=== PATIENT | male | born 1975 | race Caucasian/White ===

== ENCOUNTER 2020-08-22 21:04 | Inpatient (IN) | payer OTHER, SELFPAY ==
[2020-08-22] MEDS ORDERED: Midazolam HCl 2 mg/2 ml Vial ONE (21:32)
[2020-08-22] MEDS ORDERED: Dextrose 50% Abboject 50 ML SYRINGE SLOW IVP PRN (21:52)
[2020-08-22] MEDS ORDERED: Dextrose 5% in Water 1,000 ML IV PRN (21:52)
--- NOTE | 2020-08-22 22:20 | RAD ---
Chest one view HISTORY: Preop. FINDINGS: Cardiac silhouette is magnified by projection. Pulmonary vasculature are unremarkable. Mediastinum is midline. No lobar consolidation or evidence of pneumothorax. IMPRESSION : No abnormalities are demonstrated.
[2020-08-22] MEDS ORDERED: traMADol HCl 50 MG TAB PO PRN (22:44)
[2020-08-22] MEDS ORDERED: Ondansetron PF 4 MG/2 ML Vial IVP PRN (22:45)
[2020-08-22] MEDS ORDERED: Lactated Ringer's 1,000 ML IV SCH (23:59)
[2020-08-23] MEDS: Acetaminophen 500 MG TAB PO SCH ×4 (00:07→18:34)
[2020-08-23] MEDS: Ibuprofen 200 MG TAB PO SCH ×4 (00:08→18:00)
[2020-08-23] MEDS: traMADol HCl 50 MG TAB PO SCH ×2 (00:08→05:12)
[2020-08-23] MEDS: Morphine 4 MG/ML VIAL SLOW IVP PRN ×2 (00:10→05:12)
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
[2020-08-23 06:49] LABS: #Basophils 0.1 thou/uL (0.0-0.2); #Eosinphils 0.1 thou/uL (0.0-0.7); #Monocytes 0.8 thou/uL (0.11-0.59); %Basophils 0.8 % (0.0-1.0); %Eosinophils 1.3 % (0.0-10.0); %Lymphocytes 28.8 % (21.0-51.0); %Monocytes 10.9 % (0.0-10.0); %Neutrophils 58.2 % (42.0-75.0); Hemoglobin 13.3 g/dL (14.0-18.0); Mean Corpuscular Hemoglobin 31.3 pg (27.0-31.0); Mean Corpuscular Volume 92.2 fL (78.0-98.0); Mean Platelet Volume 7.5 fL (7.4-10.4); Platelet Count 162 thou/uL (130-400); Red Blood Cell (RBC) Count 4.24 mill/uL (4.70-6.10); White Blood Cell (WBC) Count 6.9 thou/uL (4.8-10.8)
[2020-08-23 07:08] LABS: Anion Gap 13 mmol/L (10-20); BUN (Urea Nitrogen) 10 mg/dL (8.9-20.6); Calc. Creatinine Clearance 100 mL/min (70-130); Calcium 8.5 mg/dL (7.8-10.44); Carbon Dioxide 25 mmol/L (22-29); Chloride 102 mmol/L (98-107); Glucose 124 mg/dL (70-105); Potassium 3.8 mmol/L (3.5-5.1); Sodium 136 mmol/L (136-145)
[2020-08-23] MEDS ORDERED: Fentanyl 250 MCG/5 ML VIAL ONE (07:08)
[2020-08-23] MEDS ORDERED: Midazolam HCl 2 mg/2 ml Vial ONE (08:03)
[2020-08-23] MEDS: Famotidine 20 MG TAB PO SCH ×2 (08:38→21:26)
[2020-08-23] MEDS ORDERED: EPINEPHrine 1 MG/ML AMP ONE (09:44)
[2020-08-23] MEDS ORDERED: Bupivacaine PF 0.5% 30 ML VIAL ONE (09:44)
[2020-08-23] MEDS ORDERED: Bupivacaine 0.25% HCL 30 ML VIAL ONE (09:44)
[2020-08-23] MEDS ORDERED: Bisacodyl 10 MG SUPP PR PRN (10:14)
[2020-08-23] MEDS ORDERED: Ondansetron ODT 4 MG TAB PO PRN (10:14)
[2020-08-23] MEDS ORDERED: Ondansetron PF 4 MG/2 ML Vial IVP PRN (10:14)
[2020-08-23] MEDS ORDERED: Acetaminophen 325 MG TAB PO PRN (10:14)
[2020-08-23] MEDS ORDERED: Milk Of Magnesia 30 ML UDCUP PO PRN (10:14)
[2020-08-23] MEDS ORDERED: Cepastat Lozenges 1 LOZ PO PRN (10:14)
[2020-08-23] MEDS ORDERED: Fentanyl 100 MCG/2 ML VIAL SLOW IVP PRN (10:14)
[2020-08-23] MEDS ORDERED: HYDROcodone/Acetaminophen 10/325 mg Tablet PO PRN ×2 (10:17)
[2020-08-23] MEDS ORDERED: Labetalol HCl 100 MG/20 ML VIAL ONE (10:18)
[2020-08-23] MEDS ORDERED: Rocuronium Bromide 10 MG/ML (10ML VIAL) ONE ×2 (10:22→10:23)
[2020-08-23] MEDS ORDERED: Ondansetron PF 4 MG/2 ML Vial ONE (10:22)
[2020-08-23] MEDS ORDERED: Lidocaine 1% PF 5 ML VIAL ONE ×2 (10:22→10:23)
[2020-08-23] MEDS ORDERED: Glycopyrrolate 0.2 MG/ML 5 ML SYRINGE ONE (10:22)
[2020-08-23] MEDS ORDERED: PROPOFOL 200 MG/20 ML VIAL ONE ×2 (10:22→10:23)
[2020-08-23] MEDS ORDERED: PHENYLEPHRINE-NS 100 MCG/ML 10 ML SYRINGE ONE (10:23)
--- NOTE | 2020-08-23 10:43 | OP ---
DATE OF PROCEDURE: 08/23/2020 PREOPERATIVE DIAGNOSIS: Severely comminuted lateral tibial plateau fracture of the left knee with nondisplaced medial tibial plateau fracture. POSTOPERATIVE DIAGNOSIS: Severely comminuted lateral tibial plateau fracture of the left knee with nondisplaced medial tibial plateau fracture. PROCEDURE PERFORMED: Open reduction and internal fixation of the lateral tibial plateau. ANESTHESIA: General. DESCRIPTION OF PROCEDURE: The patient was given preoperative IV antibiotics, taken to the operating room, placed in supine position. Satisfactory general anesthesia was performed. The left lower extremity was sterilely prepped and draped in usual fashion. After exsanguination, tourniquet at the left thigh was raised to 250 mmHg. A curvilinear incision was made over the anterolateral aspect of the proximal leg over the proximal tibial region. The anterior compartment muscles were sharply elevated off the anteromedial aspect of the proximal tibia. There was severe comminution of the lateral tibial plateau. Initially, the metaphyseal fracture was internally fixed to the proximal portion of the tibia using a 3.5 screw in a lag fashion. Then, a 6-hole Synthes LCP proximal tibial plate was utilized. The lateral tibial plateau was elevated and held in place with a bone clamp. Chips of allograft bone graft were inserted into the defect that was present just lateral tibial plateau and the lateral tibial plateau was internally fixed using the 6-hole LCP plate and one 3.5 cortical screw and six 3.5 locking screws. The surgery was performed under fluoroscopic visualization with the C-arm. The wound was then copiously irrigated and then closed using #1 Vicryl for the fascia and anterior muscles. The fat and subcutaneous tissue were closed with Vicryl and skin was closed skin eric. The wound was then infiltrated with a total of 30 mL of 0.5% Marcaine with epinephrine. Sterile dressing was applied. Tourniquet was released. The patient was placed in a knee immobilizer. He was awakened, extubated, and transferred to recovery room in stable condition. ESTIMATED BLOOD LOSS: 100 mL. COMPLICATIONS: None. Job ID: [id number]
--- NOTE | 2020-08-23 10:43 | CT ---
CT BRAIN: Date: 08/23/2020 PROVIDED CLINICAL HISTORY: Right-sided weakness. FINDINGS: The ventricular system appears normal in size and morphology. There is no evidence for intracranial h emorrhage or mass effect. There is prominent increased density within the left supraclinoid ICA and M 1 and M2 branches of the left MCA. There is a hyperdense appearance to the proximal left anterior cer ebral artery. There is preservation of hackett-white differentiation. The extracranial soft tissues and osseous structures appear unremarkable. IMPRESSION: 1. No evidence for intracranial hemorrhage. 2. Hyperdense vasculature as described above, compatible with extensive thrombosis. Findings communicated to Dr. Guerrero in the emergency department at 1039 hours on 08/23/2020. CODE CR. POS: RACHEL
[2020-08-23] MEDS ORDERED: Lidocaine 1% (PF) 30 ML VIAL ONE (11:10)
[2020-08-23] MEDS ORDERED: Heparin 10,000 UNITS/ 10 ML VIAL ONE (11:10)
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
--- NOTE | 2020-08-23 11:16 | CT ---
CT ANGIOGRAM GREAT VESSELS OF NECK WITH IV CONTRAST AND 3D MIP RECONSTRUCTIONS CT ANGIOGRAM BRAIN WITH IV CONTRAST AND 3D MIP RECONSTRUCTIONS: DATE: 08/23/2020 HISTORY: Right-sided weakness. FINDINGS: There is an arch origin of the left vertebral artery. The great vessels at the arch demonstrate an ot herwise normal CT angiographic appearance. There is occlusion of the left internal carotid artery just proximal to the skull base at about the l evel of C2. The left internal carotid artery is not opacified distal to this. There is nonopacificati on of the left M1 and majority of left M2 segments. There is a diminutive right A1 DAMIEN/ACOM. It appears as though the anterior circulation is supplied by a common anterior cerebral artery origin from the expected origin of the A1 left anterior cerebral a rtery, subsequently bifurcating into right and left A2 anterior cerebral arteries. The left anterior cerebral artery demonstrates a filling defect proximally. The right middle cerebral, bilateral posterior cerebral, and bilateral vertebral arteries appear gomez nt. The regional soft tissues demonstrate an unremarkable CT appearance. There is subtle loss of hackett-whi te differentiation involving the left MCA distribution. There is no evidence for intracranial hemorrh age. IMPRESSION: 1. Occlusion of the left ICA and MCA as described. 2. Suspected variant DAMIEN origin anatomy as described with thrombus demonstrated within the proximal left A2 anterior cerebral artery. Findings discussed with Dr. Guerrero in the emergency department at 1058 hours on 08/23/2020. CODE CR. POS: RACHEL
--- NOTE | 2020-08-23 11:53 | PRG ---
DATE OF SERVICE: 08/23/[address] Zaki Augustin. Mr. Alamo is a 45-year-old gentleman, admitted for trauma to the left leg. He underwent a surgical procedure on his left LE, and in the postop area, was noted to have a dense right hemiparesis with neglect. This prompted a CT scan as well as a CT angiogram, which revealed the presence of fairly heavy clot burden in the left distal internal carotid artery as well as the proximal left middle cerebral and left anterior cerebral arteries. He was not a tPA candidate due to his recent surgery. The decision was made to bring him back to the assistant laboratory director for angiography and mechanical thrombectomy. Job ID: [id number] MTDD
[2020-08-23] MEDS ORDERED: Ketorolac Tromethamine 30 MG/ML VIAL IVP SCH (12:00)
--- NOTE | 2020-08-23 12:49 | PRG ---
DATE OF SERVICE: 08/23/2020 SUBJECTIVE: The patient is hospital day #1, status post fall with a left tibial plateau fracture. The patient was stable overnight, went to the OR this morning and stable preoperatively, went through surgery without complications noted intraoperatively; however, in the PACU today, was found to have complete right kristopher-neglect, stroke alert was called. CT demonstrated a large clot burden, left MCA. Interventional Neurology was consulted and they are planning to take him for hopeful thrombectomy right now. He has been accepted to the laboratory supervisor. The patient is noted to be more hypertensive. He has since been extubated, he is on simple facemask, is saturating well, we are allowing permissive hypertension at this time. He has 2 peripheral IVs. Discussed with the interventional neurologist, Dr. Augustin, recommends no aspirin or further treatment at this time. We will monitor the patient in the ICU post-laboratory supervisor. The patient is currently maintaining his airway and is questionable whether he needed to have this protected; however, I believe some of this is the stroke and the other is still coming off the recent anesthesia. Therefore, we will just monitor his airway as it is. dehydrogenation supervisor has updated the patient's and she is inbound to the hospital now. OBJECTIVE: VITAL SIGNS: Temperature is 97.8, blood pressure systolic in the 180s, heart rate is 70s, and he is saturating 98% to 100% on simple facemask, breathing 16 times per minute. GENERAL: This is a 45-year-old male, supine in bed, on a facemask postoperatively and has right hemineglect. HEENT: Normocephalic, atraumatic. Trachea is midline. He does again have some right hemineglect. He does have some grunting and some gurgling that he is able to clear in his airway. RESPIRATORY: Equal rise and fall. Bilateral breath sounds are clear. No wheezes. CARDIOVASCULAR: Regular rate and rhythm. No lucía murmurs. ABDOMEN: Soft. PELVIS: Stable. MUSCULOSKELETAL: The patient is in a knee immobilizer in the left. He has good pulses in 4 extremities. NEUROLOGIC: Difficult to do a complete NIH scale given the patient's anesthesia, but his eyes are alert, so 3. GCS, verbal incomprehensible sounds. Motor function, he does not follow commands, but he withdraws from stimuli. He has complete right kristopher-neglect. SKIN: Warm and dry. LABORATORY DATA: From today, white blood cell count of 6.9, platelets 162, hemoglobin and hematocrit 13.3 and 39.1 respectively. Sodium is 136, potassium 3.8, chloride is 102, CO2 is 25, BUN is 10, creatinine is 1.08, glucose is 124, and calcium is 8.5. ASSESSMENT AND PLAN: 1. Left tibial plateau fracture, comminuted, status post open reduction and internal fixation. 2. Left middle cerebral artery stroke. 3. Altered mental status secondary to #2 above. 4. Hypertension, likely secondary #2 above or leading to #2 above. PLAN: 1. Will be transferred to the critical care unit. 2. Interventional Neurology has been consulted, appreciate recommendations. 3. Head of bed flat. 4. Check lipids. 5. Echo with bubble studies ordered. 6. Pain control only as needed. 7. Monitor airway and intervene as needed. 8. We will follow up with Neurosurgery. 9. Replace electrolytes as needed. 10. Repeat labs in the morning. 11. We will check coags and type and screen the patient. 12. Dr. Wynn from Orthopedics is aware of the same. 13. Very well may need Dobhoff tube for feeding, medications, as well as Pena catheter for monitoring urine output. We will evaluate after the laboratory supervisor. 14. We will update the family when they arrive at the hospital. 15. Coordinated with the Interventional Neurology team, Orthopedic team, laboratory supervisor team in CCU. This plan can be updated as needed. Job ID: [id number]
[2020-08-23] MEDS ORDERED: Iopamidol 370 76% 100 ML VIAL ONE (13:04)
--- NOTE | 2020-08-23 13:22 | RAD ---
2 VIEWS LEFT FORELEG: Date: 08/23/2020 PROVIDED CLINICAL HISTORY: Open reduction and internal fixation. FINDINGS: Spot fluoroscopic frontal and lateral images of the proximal left foreleg demonstrate lateral side pl ate and screw fixation of proximal tibial fracture. IMPRESSION: As above. POS: RACHEL
[2020-08-23] MEDS ORDERED: Fentanyl 100 MCG/2 ML VIAL ONE (13:39)
[2020-08-23] MEDS ORDERED: SUGAMMADEX SODIUM 200 MG/2 ML VIAL ONE (13:39)
[2020-08-23] MEDS ORDERED: niCARdipine 25 MG in Sodium Chloride 0.9% 250 ML 240 ML IVPB PRN (13:42)
[2020-08-23] MEDS ORDERED: Labetalol HCl 100 MG/20 ML VIAL SLOW IVP PRN (13:42)
[2020-08-23] MEDS ORDERED: hydrALAZINE 20 MG/ML VIAL SLOW IVP PRN (13:42)
[2020-08-23] MEDS ORDERED: Propofol 1,000 MG/100 ML VIAL IV ONE ×2 (14:22→14:53)
[2020-08-23] MEDS ORDERED: Vecuronium 10 MG VIAL ONE (14:27)
[2020-08-23] MEDS ORDERED: Ketamine 50 MG/ML (10ML VIAL) ONE (14:38)
[2020-08-23] MEDS ORDERED: HYDROmorphone 2 MG/ML VIAL SLOW IVP PRN (14:51)
[2020-08-23] MEDS ORDERED: Ondansetron HCl/PF 4 MG/2 ML Vial IVP PRN (14:51)
[2020-08-23] MEDS ORDERED: Morphine Sulfate 2 MG/ML SYRINGE SLOW IVP PRN (14:51)
[2020-08-23] MEDS ORDERED: Promethazine HCl 25 MG/ML VIAL SLOW IVP PRN (14:51)
[2020-08-23] MEDS ORDERED: Promethazine HCl 25 MG/ML VIAL IM PRN (14:51)
[2020-08-23] MEDS ORDERED: PACU-Morphine 4MG/ML VIAL SLOW IVP PRN (14:51)
[2020-08-23] MEDS ORDERED: Ventilator Sedation Protocol 1 EACH FS ONE (14:54)
[2020-08-23] MEDS ORDERED: Furosemide 20 MG/2 ML VIAL ONE (15:02)
[2020-08-23 15:07] LABS: SARS-CoV-2 NAA Rapid Test Not Detected (NotDetected)
--- NOTE | 2020-08-23 15:14 | RAD ---
Frontal radiograph chest: 08/23/2020 COMPARISON: 08/22/2020 HISTORY: Evaluate chest following intubation FINDINGS: There is an endotracheal tube present in proper position. Heart and mediastinal contours ap pear stable. There is extensive new perihilar airspace disease, right greater than left, with medial right upper l obe airspace disease. Supine imaging limits assessment for pleural fluid and pneumothorax. IMPRESSION: Interval development of prominent perihilar and upper lobe airspace disease, particularly on the right. Findings may be on the basis of aspiration or noncardiogenic pulmonary edema.
[2020-08-23] MEDS ORDERED: Ventilator Sedation Protocol 1 EACH FS SCH (15:15)
[2020-08-23] MEDS ORDERED: Furosemide 20 MG/2 ML VIAL SLOW IVP SCH (15:15)
[2020-08-23] MEDS ORDERED: Lorazepam 2 MG/ML VIAL SLOW IVP PRN (15:30)
[2020-08-23] MEDS ORDERED: Propofol BOLUS 1,000 MG/100 ML VIAL IV PRN (15:30)
[2020-08-23] MEDS ORDERED: Fentanyl BOLUS 250 ML IVPB PRN (15:30)
[2020-08-23] MEDS ORDERED: DISCONTINUE PREVIOUS NARCOTIC PAIN MEDICATIONS AND BENZODIAZEPINES FS SCH (15:30)
[2020-08-23] MEDS ORDERED: Fentanyl CADD 100 ML IV SCH (15:30)
[2020-08-23] MEDS ORDERED: Morphine 2 MG/ML VIAL SLOW IVP PRN (15:30)
--- NOTE | 2020-08-23 16:40 | OP ---
DATE OF PROCEDURE: 08/23/2020 PROCEDURE PERFORMED: Endotracheal intubation. INDICATION: 1. Acute respiratory failure. 2. Hypoxemia. 3. Failure to maintain airway. DESCRIPTION OF PROCEDURE: The patient was prepped in usual fashion. He was placed in supine in a sniffing position. Pre-oxygenation with 100% oxygen was obtained. Every devices were available including direct and video laryngoscopy, IV fluids, medications for sedation. The patient was monitored with blood pressure, SpO2, and heart monitor. The patient was sedated with 200 mg of ketamine. He was also given 10 mg of vecuronium for paralysis. The patient with assisted ventilation, SpO2 is preserved, initial attempts x2 with direct laryngoscopy demonstrated a boggy airway with blood and met quite a bit of edema with a very limited view of the cords. On two attempts, I was able to pass the ET tube once, however, it was indeterminate change in CO2, therefore this was removed. Then, we switched to a glide scope after BVM ventilation of the patient with a lowest of pulse ox sat in the low 80s. He responded quite nicely to BVM ventilations with into the high 90s. He was intubated on the 3rd attempt with an 8.0 ET tube with assistance of the glide scope. Again, there was swollen airway, obscured by blood. I had a grade 3 view at the best. Lung sounds were bilateral after intubation, the bulb was then inflated, it was advanced just past the karissa, and please see RT documentation for the level with teeth. Chest x-ray demonstrated good placement of the ET tube. He had positive color change, misting in the tube. SpO2 remained stable. The patient remained hemodynamically stable and the tube was secured in place. No complications immediate post procedure was identified. The patient was immediately placed on mechanical ventilator. Job ID: [id number]
--- NOTE | 2020-08-23 17:52 | OP ---
DATE OF PROCEDURE: 08/23/2020 PROCEDURE PERFORMED: Arterial line insertion. INDICATION: 1. Frequent blood gas monitoring. 2. Invasive blood pressure monitoring post ischemic stroke. CONSENT: Implied secondary to altered mental status. DESCRIPTION OF PROCEDURE: The patient's right radial artery was prepped and Kailash test was performed. He had good collateral circulation and a bounding pulse. The extremity was secured in a flexed position with tape and was cleaned with 4% chlorhexidine. Hand hygiene was performed prior to procedure. Mask and sterile gloves were donned. A sterile field with OR towels was created with one attempt and a 20-gauge arrow catheter was inserted into the right radial artery. Via Seldinger technique, was inserted to the hub. Pressure was applied to the hub, and the needle and guidewire were removed. A transducer wire was hooked up, had good waveform. This was secured in place with a 3-0 nylon suture as well as Tegaderm and tape. Blood loss, none. Complications, none. Confirmation by transducer. The patient tolerated the procedure well. Job ID: [id number]
[2020-08-23] MEDS: CEFAZOLIN 2 GM in Premix Bag 1 BAG IVPB SCH (18:33)
[2020-08-23 18:56] LABS: Base Excess (BEa) -5.7 mEq/L (-2.0 to +3.0); CO2 Tension 45.4 mmHg (35.0-45.0); Calcium, Ionized (arterial) 1.04 mmol/L (1.12-1.30); Hemoglobin (Hb) 14.3 g/dL (14.0-18.0); Potassium - ABG Lab 4.13 mmol/L (3.70-5.30); pH, Arterial 7.28 (7.35-7.45)
[2020-08-23 18:58] LABS: Puncture Site Arterial Line
[2020-08-23] MEDS ORDERED: FLU VACC QS2020-21(6MOS UP)/PF 60 MCG/0.5 ML SYRINGE IM ONE (21:00)
[2020-08-23] MEDS ORDERED: Aspirin 325 MG TAB PO SCH (21:00)
[2020-08-23] MEDS: Atorvastatin Calcium 40 MG TAB PO SCH (21:26)
[2020-08-23] MEDS: Senokot S 8.6-50 MG TAB PO SCH (21:26)
--- NOTE | 2020-08-23 21:49 | PDOC.BPN ---
- Brief Progress Note Encounter Date: 08/23/20 Encounter Time: 14:00
--- NOTE | 2020-08-23 23:20 | PRG ---
DATE OF SERVICE: 08/23/2020 The patient was seen at approximately 1400 hours this date. SUBJECTIVE: The patient was seen in the PACU area after thrombectomy for large left MCA stroke with right dense hemiplegia. Thrombectomy was reported as successful. However, in the PACU, the patient had respiratory failure, had decreased respiratory rate, not protecting his airway, unable to tolerate his secretions, tolerating OPA. He started to have bloody sputum and hemoptysis. Therefore, the patient was intubated, please see separate documentation. The patient was intubated, placed on mechanical ventilator AC mode, 12/450/0.6/+5, plateau pressures were 20. The patient was sedated with propofol, fentanyl. Goal blood pressure is less than systolic 180, but to maintain a MAP well above 65. This was verbalized with the bedside RNs. An art line was placed for access, please see separate documentation. OBJECTIVE: VITAL SIGNS: Please see the chart. ASSESSMENT: 1. Acute hypoxic respiratory failure, requiring mechanical ventilation. 2. Flash pulmonary edema/hemoptysis. 3. Large left MCA stroke, status post thrombectomy with Dr. Augustin. 4. Left tibial plateau fracture, status post open reduction and internal fixation. 5. Hypertension. 6. Former tobacco abuse. 7. Altered mental status 2/2 #3 above. PLAN: 1. We will admit the patient to ICU. 2. Intubation, see separate documentation. 3. Art line, see separate documentation. 4. Blood pressure parameters as noted above. 5. Discussed closely with the bedside RN reference blood pressure parameters, I do not want this patient to become hypotensive. 6. Head of bed flat. 7. We will follow Neurology interventions. 8. I have discussed the case with Neurology, Dr. Roshan Jensen and appreciate his assistance. He is going to see the patient in the morning. 9. Echo with bubbles has been ordered. 10. Check lipids. 11. 20 mg of Lasix for pulmonary congestion. 12. Withhold IV fluids for now. 13. Monitor urine output. 14. Continue all other supportive care. I have updated the patient's prior to intubation. She was updated in detail and also Dr. Augustin discussed with her the same. 15. Neuro exams per stroke protocol, initiated. Total critical care time, 45 minutes excluding separate billable procedures. Job ID: [id number] [facility]
[2020-08-24] MEDS: Ibuprofen 200 MG TAB PO SCH ×4 (00:25→18:45)
[2020-08-24] MEDS: Acetaminophen 500 MG TAB PO SCH ×4 (00:26→18:20)
[2020-08-24] MEDS: CEFAZOLIN 2 GM in Premix Bag 1 BAG IVPB SCH (00:29)
[2020-08-24] MEDS: Propofol 1,000 MG/100 ML VIAL IV PRN ×2 (00:35→11:46)
--- NOTE | 2020-08-24 05:13 | PRG ---
DATE OF SERVICE: 08/23/2020 The patient was seen at approximately 1400 hours. SUBJECTIVE: Post-procedure thrombectomy, large volume thrombectomy with nearly 100% removal according to Dr. Augustin. Please see separate operative note; however, in the PACU area, patient never regained consciousness, was obstructing his airway, then started to cough up bloody-tinged sputum. He was unable to control his own secretions or tolerating OPA. Despite giving him time, supplemental oxygen, patient continued to decline both with hypoxemia and mental status, therefore, I elected to emergently intubate the patient. Please see separate documentation for the same. OBJECTIVE: VITAL SIGNS: Current vital signs through arterial line, blood pressure 167/88, saturating 95% on FiO2 of 0.60 with PEEP of 5, heart rate is 80 and breathing 12 times per minute by ventilator. He is currently sedated with ketamine and propofol. I have changed from SIMV to assist-control to Pplat of 20 currently, he is intubated with an 8.0 ET tube. This is verified by chest x-ray, does have some pulmonary edema. GENERAL: This is a 45-year-old male supine, intubated, sedated, on mechanical ventilator. Post procedure, respiratory failure, remains to have strong pulses. NEURO: Patient was still moving his left side. Prior to intubation, he remained to have right hemiplegia fairly dense. Reports since then, chest x-ray demonstrating pulmonary edema and interval intubation. The ET tubes are in appropriate position. LABORATORY DATA: There is no further laboratory data to review at this time. ASSESSMENT: 1. Fall resulting in a left tibial plateau fracture status post open reduction internal fixation. 2. Large MCA stroke, status post thrombectomy. 3. Acute postprocedure respiratory failure, requiringmechanical ventilation. 4. Hypertension, likely secondary to number 2 above. 5. Hypoxic respiratory failure. 6. Concern for aspiration. 7. Pulmonary edema with change of bloody sputum could be neurogenic pulmonary edema versus noncardiac. 8. 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 PLAN: 1. Mechanical ventilation. 2. Has been transferred to the ICU. 3. Obtain ABG. Vent changes as needed. 4. Sedation with propofol and fentanyl, want to maintain a MAP well above 65 as well as systolic blood pressure less than 180. 5. I have coordinated with Dr. Augustin from Neurosurgery. 6. Consult Neurology. I paged Dr. Roshan Jensen and awaiting a call back. We will appreciate recommendations from him. 7. Aspirin per Neurosurgery. 8. NG tube has been placed to decompress the stomach. 9. Placed arterial line for invasive monitoring of blood pressure and frequent ABGs as needed. 10. Will repeat labs including coags in the morning. 11. I have updated Trauma team, Orthopedic team and coordinated with Dr. Augustin from Interventional Neurology and really appreciate his assistance in this case. 12. Obtain echocardiogram with bubble studies. 13. Obtain lipid profile. 14. Access is 8.0 ET tube, NG tube, Pena catheter, peripheral IV, and a right radial art line. 15. Full code. 16. Activity is going to be rest with head of bed flat. 17. Disposition is ICU. 18. Prophylaxis will be SCDs, aspirin, Pepcid. I did update the family during the catheterization procedure and Dr. Augustin has also updated the family, both the daughter and the . I have not updated them since the turn of events requiring mechanical ventilation, we will do the same. I have coordinated care with the PACU where the patient is going to be managed at this time. Total critical care time 45 minutes excluding separate billable procedures. Job ID: [id number]
[2020-08-24 05:45] LABS: #Monocytes 0.7 thou/uL (0.11-0.59); #Neutrophils 12.4 thou/uL (1.40-6.50); %Basophils 0.1 % (0.0-1.0); %Lymphocytes 6.8 % (21.0-51.0); %Monocytes 5.1 % (0.0-10.0); Hemoglobin 12.6 g/dL (14.0-18.0); Mean Corpuscular HGB CONC 32.4 g/dL (32.0-36.0); Mean Corpuscular Hemoglobin 30.3 pg (27.0-31.0); Mean Corpuscular Volume 93.4 fL (78.0-98.0); Mean Platelet Volume 7.5 fL (7.4-10.4); Platelet Count 174 thou/uL (130-400); Red Blood Cell (RBC) Count 4.16 mill/uL (4.70-6.10); White Blood Cell (WBC) Count 14.1 thou/uL (4.8-10.8)
[2020-08-24 06:04] LABS: Phosphorus 3.3 mg/dL (2.3-4.7)
[2020-08-24 06:07] LABS: Anion Gap 16 mmol/L (10-20); BUN (Urea Nitrogen) 9 mg/dL (8.9-20.6); Calc. Creatinine Clearance 108 mL/min (70-130); Calcium 7.4 mg/dL (7.8-10.44); Carbon Dioxide 20 mmol/L (22-29); Cardiac Risk 3.1 (Less than 4.5); Chloride 102 mmol/L (98-107); Cholesterol 147 mg/dl (< 200 Desired); Glucose 219 mg/dL (70-105); HDL Cholesterol 47 mg/dL (>60 Neg Risk); LDL Cholesterol, Calculated 61 mg/dL; Magnesium 1.5 mg/dL (1.6-2.6); Potassium 3.7 mmol/L (3.5-5.1); Sodium 134 mmol/L (136-145); Triglycerides 193 mg/dL (Less than 150)
[2020-08-24] MEDS ORDERED: Mannitol 12.5 GM/50 ML IV SCH (09:00)
[2020-08-24] MEDS ORDERED: Magnesium 2 GM/50 ML 2 GM in Premix Bag 1 BAG IVPB SCH (09:00)
--- NOTE | 2020-08-24 09:14 | RAD ---
PORTABLE CHEST: 08/24/20 PROVIDED CLINICAL HISTORY: Respiratory failure. COMPARISON: 08/23/2020 FINDINGS: Interval placement of enteric catheter, the tip of which is not visualized but is below the diaphragm . Persistent but decreased perihilar edema on the right. The supine nature of the examination is not sensitive for detection of pleural fluid or pneumothorax. Endotracheal tube is again seen in similar position. IMPRESSION: 1. Interval placement of enteric catheter. 2. Persistent but diminished right perihilar air space disease. POS: RACHEL
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
[2020-08-24] MEDS: Aspirin 300 MG Suppository PR SCH (09:30)
[2020-08-24] MEDS: niCARdipine 50 MG in Sodium Chloride 0.9% 250 ML 230 ML IVPB PRN ×2 (09:31→21:01)
[2020-08-24] MEDS: Senokot S 8.6-50 MG TAB PO SCH ×2 (09:37→20:40)
[2020-08-24] MEDS: Famotidine 20 MG TAB PO SCH ×2 (09:37→20:40)
[2020-08-24] MEDS: Multivitamin W/ Minerals 1 TAB PO SCH (09:37)
--- NOTE | 2020-08-24 09:53 | CT ---
PRELIMINARY REPORT/[facility]/EMERGENCY AFTER HOURS PROCEDURE: Receipt of this report by the clinical staff was confirmed with Marlys Jackson RN by Madisyn Cueva Aug 24, 2020 05:31:00 BREED TO [employer] PRODUCTION TECHNICIAN. Addendum electronically signed by Madisyn Cueva on August 24, 2020 5:31:43 AM BREED TO WEAN PRODUCTION TECHNICIAN EXAM: CT Head Without Intravenous Contrast. CLINICAL HISTORY: FOLLOW UP CVA TECHNIQUE: Axial computed tomography images of the head/brain without intravenous contrast. COMPARISON: CT\SR - CT BRAIN WO CON - 08/23/2020 10:32 AM BREED TO WE[employer] PRODUCTION TECHNICIAN FINDINGS: BRAIN: Interval demarcation of hypodensity throughout the left MCA territory. There is loss of hackett-white di fferentiation and edema with mass-effect upon the overlying sulci and marked left to right midline sh ift measuring up to 1.5 cm at the level of the septum pellucidum. There is hyperdensity within the yi lci of the left temporal lobe and sylvian fissure which may represent subarachnoid hemorrhage versus pseudo-subarachnoid hemorrhage. There is a an 8 mm focus of hyperdensity within the left basal gangli a which is suspicious for a small acute hemorrhage. There is mass-effect upon the right cerebrum with effacement of the majority of the sulci. There is left to right subfalcine herniation. There is impending left uncal herniation. The previously seen dense vasculature is not as well appreciated on this study. VENTRICLES: There is effacement of the left lateral ventricle including the frontal, temporal and occipital horns and entrapment and hydrocephalus of the right lateral ventricle. ORBITS: The orbits are unremarkable. SINUSES AND MASTOIDS: Mucosal opacification of the maxillary, sphenoid and ethmoid sinuses. SOFT TISSUES: No significant facial or scalp soft tissue swelling evident. No radiopaque foreign body is seen. BONES: No acute skull fracture. MISCELLANEOUS: Endotracheal and enteric tubes in place. IMPRESSION: Interval new demarcation of hypodensity throughout the left MCA territory with loss of abreu-white dif ferentiation. Marked cytotoxic edema with new marked right to left midline shift measuring up to 1.5 cm at the level of septum pellucidum with subfalcine herniation and impending left uncal herniation. Effacement of the left lateral ventricle including the frontal, temporal and occipital horns and entr apment and hydrocephalus of the right lateral ventricle. Hyperdensity within the sulci of the left temporal lobe and sylvian fissure which may represent subar achnoid hemorrhage versus pseudo-subarachnoid hemorrhage. There is a an 8 mm focus of hyperdensity wi thin the left basal ganglia which is suspicious for a small acute hemorrhage. Mass-effect upon the right cerebrum with effacement of the majority of the sulci. ELECTRONICALLY SIGNED BY: Shona Larsen MD Aug 24, 2020 5:15:18 AM BREED TO WE[employer] PRODUCTION TECHNICIAN This report is intended for review by the ordering physician only, in accordance of law. If you recei ve this report in error, please call [facility] at [phone]. FINAL REPORT EMERGENCY AFTER HOURS CT BRAIN: IMPRESSION: Agree with the preliminary interpretation. POS: RACHEL
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
--- NOTE | 2020-08-24 10:15 | PRG ---
DATE OF SERVICE: 08/24/2020 SUBJECTIVE: The patient is a 45-year-old man who is hospital day #2, postop day #1, status post ORIF of the left tibial plateau fracture, who subsequently had developed right hemiplegia, found to have left MCA stroke, status post thrombectomy with Dr. Augustin; acute respiratory failure, requiring mechanical ventilation; moved to the ICU. In the ICU, he started having some bradycardia and pauses overnight, concerning for worsening condition. CT demonstrates large infarct left MCA territory. The patient has been seen by Dr. Velasco and Neurosurgery team and awaiting plan. They have discussed with the patient's the deterioration in condition. The patient has remained hemodynamically stable. However, he was started on Cardene briefly. This has been titrated off. We are currently reducing sedation for better neuro exam. Otherwise, no other significant events overnight. PHYSICAL EXAMINATION: CURRENT VITAL SIGNS: Temp is 98.7, blood pressure is 163/72, heart rate is 72. He is breathing 15 times per minute on the ventilator, saturating 100% on FiO2 0.50. Urine output is appropriate. GENERAL: This is a 45-year-old male, sedated, intubated on mechanical ventilation. HEENT: Normocephalic, atraumatic. The patient is intubated, 8.0 ET tube. No air leak. RESPIRATORY: Equal rise and fall. Bilateral breath sounds clear to auscultation, upper and lower lungs bilaterally, assisted by mechanical ventilation. CARDIOVASCULAR: An irregular rhythm, rate of 76 at the time of this dictation. No edema. No murmurs. ABDOMEN: Soft and nontender. PELVIS: Stable. Pena catheter is noted. MUSCULOSKELETAL: Has a knee immobilizer to the left lower extremity. Has pulses noted in all extremities. NEURO: The patient is GCS 3T currently. SKIN: Warm and dry. PSYCH: Deferred. LABORATORY DATA: From today, white blood cell count of 14.1, platelets 174, hemoglobin and hematocrit 12.6 and 38.9 respectively. Sodium is 134, potassium 3.7, chloride is 102, CO2 is 20, BUN is 9, creatinine 1.03, glucose is 209, calcium is 7.4, magnesium is 1.5. Triglycerides are 193. BNP of 37, LDL 61, HDL is 47, cholesterol is 147. ASSESSMENT AND PLAN: 1. Acute respiratory failure, requiring mechanical ventilation. 2. Left tibial plateau fracture, status post ORIF. 3. Large left MCA cerebrovascular accident, status post thrombectomy. 4. Concern for cerebral edema and herniation. 5. Hypomagnesemia. 6. Mild hyperglycemia. 7. History of tobacco abuse. 8. Consider underlying hypertension. PLAN: 1. Continue supportive care. 2. Needs aggressive management of his cerebral edema and consideration of craniotomy. Neurosurgery team has seen the patient. I have attempted to call. I did get a message back from the PA, saying that he is already herniated, but they are yet to give me the plan moving forward. 3. Will give mannitol at their discretion. 4. We will do head of bed at 30 for now. 5. Will treat hypomagnesemia with 2 g. 6. We will start oiora-fm-odsd glucose and sliding scale insulin to cover. 7. Worrisome events overnight for worsening condition and long-term brain damage on each side, soon if there is plan for craniectomy. He is referred to the Neurosurgery team. I appreciate their assistance. 8. We will continue all other supportive care. 9. There is no family at bedside to update. I did update the once yesterday. I believe that they have been updated by Neurosurgery already this morning. We will provide any assistance that we can. 10. I have coordinated care with the bedside RN. The patient is getting echo at this time and is still pending. I have requested the health information tech to do bubble study also. Forty minutes critical care time so far this morning. patient seen with Dr. Savage. Job ID: [id number] [facility]
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
[2020-08-24] MEDS: Atorvastatin Calcium 40 MG TAB PO SCH (20:40)
[2020-08-25] MEDS: Acetaminophen 500 MG TAB PO SCH ×5 (00:08→19:52)
[2020-08-25] MEDS: Ibuprofen 200 MG TAB PO SCH ×3 (00:10→19:51)
[2020-08-25 00:17] LABS: #Lymphocytes 0.7 thou/uL (1.20-3.40); #Monocytes 1.2 thou/uL (0.11-0.59); #Neutrophils 11.6 thou/uL (1.40-6.50); %Basophils 0.1 % (0.0-1.0); %Eosinophils 0.1 % (0.0-10.0); %Lymphocytes 4.8 % (21.0-51.0); %Monocytes 8.6 % (0.0-10.0); %Neutrophils 86.4 % (42.0-75.0); Hemoglobin 14.1 g/dL (14.0-18.0); Mean Corpuscular HGB CONC 33.3 g/dL (32.0-36.0); Mean Corpuscular Volume 93.1 fL (78.0-98.0); Mean Platelet Volume 7.7 fL (7.4-10.4); Platelet Count 228 thou/uL (130-400); RBC Distribution Width 11.2 % (11.5-14.5); Red Blood Cell (RBC) Count 4.55 mill/uL (4.70-6.10); White Blood Cell (WBC) Count 13.4 thou/uL (4.8-10.8)
[2020-08-25 00:24] LABS: PTT 24.6 sec (22.9-36.1); Prothrombin Time 13.5 sec (12.0-14.7)
[2020-08-25 00:32] LABS: Lactic Acid 1.6 mmol/L (0.5-2.2)
[2020-08-25 00:42] LABS: CKMB 2.8 ng/mL (0-6.6); Troponin I 0.038 ng/mL (< 0.028)
[2020-08-25 01:01] LABS: Actual Bicarbonate (HCO3a) 24.7 mEq/L (22-28); Base Excess (BEa) 0.6 mEq/L (-2.0 to +3.0); CO2 Tension 38.4 mmHg (35.0-45.0); Calcium, Ionized (arterial) 1.23 mmol/L (1.12-1.30); Carboxyhemoglobin (COHb) 0.1 gm% (0.0-3.0); Hemoglobin (Hb) 14.8 g/dL (14.0-18.0); O2 Tension (PaO2), arterial 350.1 mmHg (80.0-100.0); Potassium - ABG Lab 3.82 mmol/L (3.70-5.30); pH, Arterial 7.43 (7.35-7.45)
[2020-08-25 01:14] LABS: Puncture Site Arterial Line
[2020-08-25 01:25] LABS: Albumin 3.7 g/dL (3.5-5.0)
[2020-08-25 01:26] LABS: Potassium 3.7 mmol/L (3.5-5.1)
[2020-08-25 01:28] LABS: Globulin 3.4 g/dL (2.4-3.5); Glucose 218 mg/dL (70-105); Protein, Total 7.1 g/dL (6.0-8.3)
[2020-08-25 01:29] LABS: Anion Gap 13 mmol/L (10-20); Bilirubin, Total 0.5 mg/dL (0.2-1.2); Carbon Dioxide 26 mmol/L (22-29)
[2020-08-25 01:31] LABS: Alkaline Phosphatase 59 U/L (40-110); Calc. Creatinine Clearance 0 mL/min (70-130)
[2020-08-25 01:32] LABS: BUN (Urea Nitrogen) 16 mg/dL (8.9-20.6)
[2020-08-25 01:33] LABS: AST (SGOT) 35 U/L (5-34); Magnesium 2.8 mg/dL (1.6-2.6)
[2020-08-25 01:34] LABS: ALT (SGPT) 29 U/L (8-55); CK (CPK) 466 U/L (30-200); Lipase 35 U/L (8-78)
[2020-08-25 01:40] LABS: Calcium 9.2 mg/dL (7.8-10.44); Chloride 129 mmol/L (98-107); Phosphorus Less than 1.0 mg/dL (2.3-4.7); Sodium 164 mmol/L (136-145)
[2020-08-25] MEDS ORDERED: Sodium Chloride 0.45% 1,000 ML IV SCH (02:30)
[2020-08-25] MEDS ORDERED: Potassium Phosphate 30 MMOL in Sodium Chloride 0.9% 250 ML 250 ML IVPB SCH ×2 (03:00→15:30)
[2020-08-25] MEDS ORDERED: Fentanyl CADD 100 ML ONE (03:55)
[2020-08-25 07:56] LABS: CKMB 1.5 ng/mL (0-6.6)
[2020-08-25 08:00] LABS: Troponin I 0.377 ng/mL (< 0.028)
--- NOTE | 2020-08-25 08:02 | PRG ---
DATE OF SERVICE: 08/25/2020 Mr. Alamo in his ICU room this morning. Mr. Alamo was admitted with tibial plateau fracture, taken to the operating room and had difficulty during his recovery evening with mental status changes and CT showing clot in the internal carotid artery, middle cerebral artery on the left side. He went for thrombectomy. Unfortunately, he developed a large MCA infarct including lenticulostriate. Yesterday, he had preserved gag and breathing reflexes, but no Doll's eyes, corneal, or pupillary reflex. Overnight, blood pressures have been 140s to 150s. He developed a fever to 101.3 degrees Fahrenheit this morning. Other vital signs have been relatively stable. He remains on a propofol and fentanyl drip. On examination, Mr. Alamo has regained his corneal reflex on the right; it is minimal on the left, but is clearly present on the right. Pupils are not reactive. He gags and breathes. To midline stimulus, there is motion of the neck and there is some movement of the upper trunk. There is no abnormal flexor posturing. No abnormal extensor posturing. There is no motion to stimulus of the extremities. Blood gas this morning shows a pCO2 of 38.4. Sodium went up to 164 after mannitol yesterday, but his back down to 134 at 3:30 am this morning. Mr. Alamo has had a very large MCA infarct on the dominant hemisphere. There is swelling that will occur and continue to worsen over the next 48 hours. During that time, it is likely he will lose his brainstem reflexes. I have already communicated the fact with the family. We talked briefly yesterday about a craniectomy, but the family elected not to proceed with any surgical intervention to decompress given the fact that his language function in right side of his body would be permanently affected by his large infarct. He will be permanently dependent for care and his family does not feel that is in his best interest. All of the sedating medications can help to control blood pressure, so can IV blood pressure medicines. When and if he loses the remainder of his brainstem reflexes, the family has expressed interest in organ donation. Brain examination, when that comes to pass, will necessitate being off propofol and fentanyl for at least 3-4 half-life of those medications, to have a no hypothermia, and have a starting pCO2 of around 40 when we began our apnea test. It is not time for that yet as he has some other brainstem reflexes remaining. Job ID: [id number]
[2020-08-25] MEDS: Aspirin 300 MG Suppository PR SCH (08:28)
[2020-08-25] MEDS: Famotidine 20 MG TAB PO SCH ×2 (08:28→20:00)
[2020-08-25] MEDS: Multivitamin W/ Minerals 1 TAB PO SCH (08:28)
[2020-08-25] MEDS: Senokot S 8.6-50 MG TAB PO SCH ×2 (08:29→20:01)
[2020-08-25] MEDS ORDERED: Sodium Chloride 0.9% 1,000 ML IV SCH (09:00)
--- NOTE | 2020-08-25 09:36 | RAD ---
PORTABLE CHEST: FINDINGS: NG tube and endotracheal tubes in place. Minimal patchy parenchymal changes in the right lower lobe. Mild increased markings in the perihilar regions bilaterally. No significant process. Minimal par enchymal changes in the right lower lobe appear somewhat improved. IMPRESSION: Some increased markings bilaterally but overall improvement in the appearance, particularly the right perihilar and infrahilar regions. No significant new process. Continue short-term followup. POS: OFF
[2020-08-25] MEDS ORDERED: manNITOL 20% 500 ML ONE (09:43)
[2020-08-25] MEDS ORDERED: Mannitol 12.5 GM/50 ML SLOW IVP SCH (10:00)
--- NOTE | 2020-08-25 10:43 | CT ---
CT Brain WO Con: 08/25/2020 10:15 AM CLINICAL HISTORY: Follow-up intraparenchymal hemorrhage. IMAGING TECHNIQUE: Multiple CT images were obtained of the brain without IV contrast. COMPARISON: CT of the brain without contrast dated August 24, 2020 FINDINGS: BRAIN: Evidence of acute infarct: The large MCA distribution infarct involving the left cerebrum demonstrat es worsening cytotoxic edema. There is a new acute infarct involving the medial aspect of the posterior right temporal lobe as well as the right occipital lobe suspicious for an acute infarct. Th ere is a new acute infarct involving the superior right cerebellar hemisphere. There are new hypodensity seen within the region of the midbrain suspicious for edema. Evidence of chronic ischemic change:None. Evidence of intracranial hemorrhage: There is worsening intracranial hemorrhage centered within the left caudate and left globus pallidus region measuring approximately 3.9 cm greatest axial dimension. Previously this collection measured 9 millimeter. There is hyperdensity within the left as pect of the suprasellar cistern as well as within the left sylvian fissure suspicious for subarachnoid hemorrhage. Evidence of brain volume loss:None. Evidence of midline shift: There is worsening [id number] midline shift of 2.4 cm were previously it was 1.6 cm. Ventricles: There is complete coaptation of the left lateral ventricle due to edema. There is some v jorge mild trapping now involving the temporal horn of the right lateral ventricle. SKULL: Intact. VISUALIZED PARANASAL SINUSES: Small air-fluid levels are seen involving the ethmoid air cells and sp henoid sinuses. MASTOID AIR CELLS: Clear. EXTRACRANIAL SOFT TISSUES: Normal. IMPRESSION: Worsening cytotoxic edema of the left cerebral hemisphere with worsening [id number]-gdexu midline shift. There are now new acute infarcts involving the right HEALTH DATA ANALYST distribution and right superior cerebellar artery distribution. There is an enlarging intraparenchymal hemorrhage centered within the left basal ganglia. There is worsening hyperdensity within the left aspect of the suprasellar cistern as well as the left sylvian fissure suspicious for worsening subarachnoid hemorrhage. Findings were called to [facility] Cabello for the trauma service at 10:35 AM on August 25, 2020.
--- NOTE | 2020-08-25 11:14 | MRI ---
Exam: Brain MRI without contrast HISTORY: Left MCA infarct COMPARISON: None FINDINGS: Calvarial marrow signal intensity: Appropriate T1 signal Gradient echo sequence: Hypointensity associated with the known intra-arterial thrombus. This also ev idence of hemorrhagic conversion of stroke involving the left deep hackett matter structures. Brain parenchyma: Marked edema and sulcal effacement secondary to a large left MCA distribution infar ct. There is left to right subfalcine herniation measuring 2 cm. There is also left uncal herniation with effacement of the left ambient cistern. Cortical hackett-white matter differentiation: Near complete loss of cortical hackett-white differentiation involving the left cerebrum. There are scattered areas of loss of hackett-white matter differentiation the right cerebrum. Restricted diffusion: Extensive restricted diffusion involving the majority of the left cerebrum comp atible with a large left MCA distribution infarct. Additional areas of restricted diffusion in the left and right cerebrum compatible with SPECIAL MACHINE OPERATOR distribution infarct, right MCA distribution infarct, emb olic infarcts as well as infarctions involving the cerebellum and brainstem. White matter signal intensities:Extensive T2 and FLAIR white matter hyperintensities secondary to inf arction Sinuses: Adequate aeration of the paranasal sinuses and mastoid air cells. Ventricles: Mass effect upon the left lateral ventricle. Asymmetric dilatation of the temporal horn o f the right lateral ventricle due to entrapment. IMPRESSION: 1. Large left MCA distribution infarct. There is 2 cm of [id number] subfalcine herniation. Additio nal multifocal infarctions are noted in cerebrum and cerebellum. 2. As mentioned above, there is left to right subfalcine herniation as well as left uncal herniation. Results study conveyed to [facility] trauma [facility], via [employer] connect 08/25/2020 11:13 AM Code CR Transcribed Date/Time: 08/25/2020 11:18 AM
[2020-08-25 12:07] VITALS: BMI 25.4
[2020-08-25 12:29] LABS: CKMB 1.6 ng/mL (0-6.6)
[2020-08-25] MEDS ORDERED: Esmolol 2,500 MG/250 ML 250 ML IVPB SCH (14:30)
[2020-08-25 14:57] LABS: Anion Gap 16 mmol/L (10-20); BUN (Urea Nitrogen) 20 mg/dL (8.9-20.6); Calc. Creatinine Clearance 49 mL/min (70-130); Calcium 9.5 mg/dL (7.8-10.44); Carbon Dioxide 22 mmol/L (22-29); Chloride 134 mmol/L (98-107); Glucose 226 mg/dL (70-105); Magnesium 2.5 mg/dL (1.6-2.6); Phosphorus Less than 1.0 mg/dL (2.3-4.7); Potassium 3.3 mmol/L (3.5-5.1); Sodium 169 mmol/L (136-145)
[2020-08-25] MEDS ORDERED: Dextrose 5% in Water 1,000 ML IV SCH (15:15)
[2020-08-25] MEDS ORDERED: Albumin 5% 500 ML ONE (15:37)
[2020-08-25] MEDS ORDERED: Dextrose 50% Abboject 50 ML SYRINGE ONE (15:43)
[2020-08-25] MEDS ORDERED: Insulin Regular 300 UNITS/3 ML VIAL ONE (15:44)
[2020-08-25] MEDS ORDERED: Insulin Regular 300 UNITS/3 ML VIAL IVP SCH (15:45)
[2020-08-25] MEDS ORDERED: Dextrose 50% Abboject 50 ML SYRINGE SLOW IVP SCH (15:45)
[2020-08-25] MEDS ORDERED: methylPREDNISolone Sod Succ 2 GM in Sodium Chloride 0.9% 100 ML IVPB SCH (15:45)
[2020-08-25] MEDS ORDERED: Levothyroxine Sodium 400 MCG in Sodium Chloride 0.9% 100 ML IVPB SCH (15:45)
[2020-08-25] MEDS ORDERED: Norepinephrine 8 MG/0.9% NS 250 ML ONE (15:59)
--- NOTE | 2020-08-25 16:19 | RAD ---
Chest AP view INDICATION: History of line placement COMPARISON: August 25, 2020 FINDINGS: Lungs: The lungs are clear. Patchy parenchymal changes of the right lung base have improved. Cardiac silhouette: The cardiomediastinal silhouette appears within normal limits. Pulmonary vasculature: There is mild pulmonary vascular congestion Pleural spaces: No pleural effusion or pneumothorax is demonstrated. Upper abdomen: Gastric catheter projects in the region of the gastric cardia. Osseous structures: No acute osseous abnormality. Additional findings: Left subclavian central venous catheter is in place. No pneumothorax is evident . ET tube tip is unchanged. IMPRESSION: 1. New left subclavian central venous catheter with the tip in the caval atrial junction. No pneumoth orax. 2. Mild pulmonary vascular congestion may reflect volume overload 3. Improvement in the right basilar parenchymal opacities possibly related to subsegmental volume los s.
[2020-08-25 17:05] LABS: INR-International Normal Ratio 1.4; PTT 31.9 sec (22.9-36.1); Prothrombin Time 17.6 sec (12.0-14.7)
[2020-08-25 17:09] LABS: Hemoglobin 9.7 g/dL (14.0-18.0); Mean Corpuscular HGB CONC 33.3 g/dL (32.0-36.0); Mean Corpuscular Hemoglobin 32.7 pg (27.0-31.0); Mean Corpuscular Volume 98.2 fL (78.0-98.0); Mean Platelet Volume 8.4 fL (7.4-10.4); Platelet Count 136 thou/uL (130-400); RBC Distribution Width 11.5 % (11.5-14.5); Red Blood Cell (RBC) Count 2.96 mill/uL (4.70-6.10)
[2020-08-25 17:09] LABS: Actual Bicarbonate (HCO3a) 16.9 mEq/L (22-28); Base Excess (BEa) -10.6 mEq/L (-2.0 to +3.0); CO2 Tension 43.8 mmHg (35.0-45.0); Calcium, Ionized (arterial) 1.64 mmol/L (1.12-1.30); Carboxyhemoglobin (COHb) 0.3 gm% (0.0-3.0); Hemoglobin (Hb) 11.2 g/dL (14.0-18.0); O2 Tension (PaO2), arterial 119.2 mmHg (80.0-100.0); Potassium - ABG Lab 2.21 mmol/L (3.70-5.30)
[2020-08-25 17:12] LABS: Puncture Site Arterial Line
[2020-08-25 17:22] LABS: Band 1 % (5-11); Lymphocytes 48 % (21-51); MDiff Complete? YES; Monocytes 7 % (0-10); Myelocyte 1 % (0-0); Neutrophil 41 % (42-75); Nucleated RBC 6 % (0); Platelet Morphology Comment Appears Adequate; Polychromasia MODERATE = 3-4 cells (100X) (0-2/hpf); Reactive Lymphocytes 2 % (0-10)
[2020-08-25 17:40] LABS: Actual Bicarbonate (HCO3a) 25.7 mEq/L (22-28); Base Excess (BEa) -2.5 mEq/L (-2.0 to +3.0); Calcium, Ionized (arterial) 1.44 mmol/L (1.12-1.30); Carboxyhemoglobin (COHb) 0.3 gm% (0.0-3.0); Hemoglobin (Hb) 10.2 g/dL (14.0-18.0); O2 Tension (PaO2), arterial 85.4 mmHg (80.0-100.0); Potassium - ABG Lab 2.15 mmol/L (3.70-5.30)
[2020-08-25 17:41] LABS: CO2 Tension 62.7 mmHg (35.0-45.0); pH, Arterial 7.23 (7.35-7.45)
[2020-08-25 17:42] LABS: ALV-art Gradient 549.225 mmHg (0-20); Puncture Site Arterial Line
[2020-08-25] MEDS ORDERED: Norepinephrine 8 MG/0.9% NS 250 ML IVPB SCH (17:45)
[2020-08-25] MEDS ORDERED: Phenylephrine 40 MG in Sodium Chloride 0.9% 250 ML 250 ML IVPB SCH (17:45)
[2020-08-25 18:12] LABS: Phosphorus 1.2 mg/dL (2.3-4.7)
[2020-08-25 18:13] LABS: ALT (SGPT) 21 U/L (8-55); AST (SGOT) 39 U/L (5-34); Alkaline Phosphatase 41 U/L (40-110); Anion Gap 17 mmol/L (10-20); BUN (Urea Nitrogen) 26 mg/dL (8.9-20.6); Bilirubin, Total 0.5 mg/dL (0.2-1.2); Calc. Creatinine Clearance 31 mL/min (70-130); Calcium 9.9 mg/dL (7.8-10.44); Carbon Dioxide 22 mmol/L (22-29); Chloride 137 mmol/L (98-107); Globulin 1.6 g/dL (2.4-3.5); Glucose 307 mg/dL (70-105); Potassium 2.3 mmol/L (3.5-5.1); Protein, Total 4.6 g/dL (6.0-8.3); Sodium 174 mmol/L (136-145)
[2020-08-25] MEDS ORDERED: Potassium Phosphate 20 MMOL in Sodium Chloride 0.9% 250 ML 250 ML IVPB SCH (18:45)
[2020-08-25] MEDS: Dextrose 5% in Water 1,000 ML IV SCH ×2 (18:53→21:54)
[2020-08-25] MEDS: Potassium Chloride 20 MEQ in Premix Bag 1 BAG IVPB SCH ×2 (18:53→20:10)
[2020-08-25] MEDS: Phenylephrine 40 MG in Sodium Chloride 0.9% 250 ML 250 ML IVPB SCH ×3 (19:28→23:19)
[2020-08-25 19:33] LABS: CKMB 2.1 ng/mL (0-6.6)
[2020-08-25 19:39] LABS: Troponin I 5.263 ng/mL (< 0.028)
[2020-08-25] MEDS: Atorvastatin Calcium 40 MG TAB PO SCH (20:01)
[2020-08-25] MEDS ORDERED: Sodium Bicarb 50 MEQ/50 ML Abboject 8.4% SYRINGE ONE (21:38)
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
[2020-08-26] MEDS ORDERED: Acetaminophen 500 MG TAB PO SCH (00:15)
[2020-08-26 00:36] LABS: Anion Gap 17 mmol/L (10-20); BUN (Urea Nitrogen) 33 mg/dL (8.9-20.6); Calc. Creatinine Clearance 31 mL/min (70-130); Calcium 8.9 mg/dL (7.8-10.44); Carbon Dioxide 16 mmol/L (22-29); Chloride 134 mmol/L (98-107); Glucose 434 mg/dL (70-105); Magnesium 1.7 mg/dL (1.6-2.6); Phosphorus Less than 1.0 mg/dL (2.3-4.7); Potassium 1.6 mmol/L (3.5-5.1); Sodium 165 mmol/L (136-145)
[2020-08-26 00:37] LABS: CKMB 81.9 ng/mL (0-6.6)
[2020-08-26 01:00] LABS: Troponin I 245.645 ng/mL (< 0.028)
[2020-08-26] MEDS ORDERED: Sodium Chloride 0.45% 1,000 ML IV SCH (01:00)
[2020-08-26] MEDS ORDERED: Potassium Chloride 40 MEQ in Premix Bag 1 BAG IVPB SCH ×3 (01:00→08:30)
[2020-08-26] MEDS: Sodium Chloride 0.45% 1,000 ML IV SCH ×2 (01:20→06:02)
[2020-08-26] MEDS ORDERED: Potassium Phosphate 30 MMOL in Sodium Chloride 0.9% 250 ML 250 ML IVPB SCH (02:00)
[2020-08-26] MEDS: Phenylephrine 40 MG in Sodium Chloride 0.9% 250 ML 250 ML IVPB SCH ×2 (02:58→05:14)
[2020-08-26] MEDS: Vasopressin 20 UNIT, Admixture Fee 1 EACH in Sodium Chloride 0.9% 50 ML IV SCH ×2 (05:13→11:01)
[2020-08-26] MEDS: Acetaminophen 500 MG TAB PO SCH ×2 (05:14→09:58)
[2020-08-26 05:49] LABS: #Lymphocytes 0.3 thou/uL (1.20-3.40); #Monocytes 0.3 thou/uL (0.11-0.59); #Neutrophils 3.8 thou/uL (1.40-6.50); %Eosinophils 0.3 % (0.0-10.0); %Lymphocytes 6.5 % (21.0-51.0); %Monocytes 6.3 % (0.0-10.0); %Neutrophils 86.9 % (42.0-75.0); Hemoglobin 10.1 g/dL (14.0-18.0); Mean Corpuscular HGB CONC 33.8 g/dL (32.0-36.0); Mean Corpuscular Hemoglobin 32.7 pg (27.0-31.0); Mean Corpuscular Volume 96.8 fL (78.0-98.0); Mean Platelet Volume 8.4 fL (7.4-10.4); Platelet Count 20 thou/uL (130-400); RBC Distribution Width 11.8 % (11.5-14.5); Red Blood Cell (RBC) Count 3.09 mill/uL (4.70-6.10); White Blood Cell (WBC) Count 4.4 thou/uL (4.8-10.8)
[2020-08-26] MEDS ORDERED: HUMULIN R 100 UNITS in Sodium Chloride 0.9% 100 ML IVPB SCH (06:30)
[2020-08-26 06:32] LABS: Hemoglobin 10.4 g/dL (14.0-18.0); Platelet Count 20 thou/uL (130-400)
[2020-08-26 06:33] LABS: Anion Gap 16 mmol/L (10-20); BUN (Urea Nitrogen) 33 mg/dL (8.9-20.6); Calc. Creatinine Clearance 36 mL/min (70-130); Calcium 8.2 mg/dL (7.8-10.44); Carbon Dioxide 17 mmol/L (22-29); Chloride 133 mmol/L (98-107); Glucose 480 mg/dL (70-105); Magnesium 1.7 mg/dL (1.6-2.6); Phosphorus 2.9 mg/dL (2.3-4.7); Potassium 1.5 mmol/L (3.5-5.1); Sodium 164 mmol/L (136-145)
[2020-08-26 06:39] LABS: CKMB 116.4 ng/mL (0-6.6)
[2020-08-26] MEDS ORDERED: Dextrose 5% in Water 1,000 ML IV SCH (06:45)
[2020-08-26] MEDS ORDERED: Magnesium Sulfate 3 GM in Sodium Chloride 0.9% 100 ML IVPB SCH (06:45)
[2020-08-26 06:51] LABS: Critical Call Chem Troponin I RESULT DECREASING; Troponin I 172.353 ng/mL (< 0.028)
[2020-08-26 06:58] LABS: Actual Bicarbonate (HCO3a) 17.3 mEq/L (22-28); Base Excess (BEa) -6.5 mEq/L (-2.0 to +3.0); CO2 Tension 29.1 mmHg (35.0-45.0); Calcium, Ionized (arterial) 1.22 mmol/L (1.12-1.30); Carboxyhemoglobin (COHb) 0.3 gm% (0.0-3.0); Hemoglobin (Hb) 10.6 g/dL (14.0-18.0); O2 Tension (PaO2), arterial 136.9 mmHg (80.0-100.0); Potassium - ABG Lab 1.32 mmol/L (3.70-5.30); pH, Arterial 7.39 (7.35-7.45)
[2020-08-26 07:01] LABS: Puncture Site Arterial Line
[2020-08-26 07:02] LABS: ALV-art Gradient 111.925 mmHg (0-20)
--- NOTE | 2020-08-26 07:11 | PRG ---
DATE OF SERVICE: 08/26/2020 I came by Mr. Alamo's room this morning. Evidently, there was a resuscitation effort made yesterday during a cardiac dysrhythmia. Since that time, he has had no neurological function per his nursing staff. This morning, among the numerous medications being administered IV continuously, I do not see any fentanyl or propofol. The effects of that sedating medication should wear off after 3 to 4 half lives of each. Among the electronically recorded vital signs, the maximum temperature of 104.3 degrees Fahrenheit was noted. Blood pressures have been in the 100s to 130s. On examination this morning, Mr. Alamo does not have brainstem reflexes that I can elicit. Neither pupil reacting to light. They were midline and fixed. The corneal reflexes are now absent. There is no vestibulo-ocular reflex that I can elicit with doll's eyes maneuver. I did not get a gag when ingesting the NG and endotracheal tube. If Mr. Alamo fails an apnea test, he has met criteria for brain . I will defer to the primary service who seems to be making decisions. Call us back if needed. Job ID: [id number] [id number]
[2020-08-26] MEDS ORDERED: Levothyroxine Sodium 400 MCG, Admixture Fee 1 EACH in Sodium Chloride 0.9% 100 ML IVPB SCH (07:15)
--- NOTE | 2020-08-26 07:19 | EKG ---
Test Reason : SVT Blood Pressure : / mmHG Vent. Rate : 167 BPM Atrial Rate : 163 BPM P-R Int : 000 ms QRS Dur : 100 ms QT Int : 282 ms P-R-T Axes : 000 125 184 degrees QTc Int : 470 ms Supraventricular tachycardia Right ventricular hypertrophy Marked ST abnormality, possible inferior subendocardial injury Marked ST abnormality, possible anteroseptal subendocardial injury Abnormal ECG When compared with ECG of 24-AUG-2020 15:50, (Unconfirmed) Significant changes have occurred Confirmed by DR. Mehrdad FIELDS ([id number]) on 08/26/2020 7:18:25 AM Referred By: JAVAD Confirmed By:DR. Mehrdad FIEDLS
--- NOTE | 2020-08-26 07:21 | EKG ---
Test Reason : POST CARDIOVERSION Blood Pressure : / mmHG Vent. Rate : 119 BPM Atrial Rate : 119 BPM P-R Int : 194 ms QRS Dur : 138 ms QT Int : 280 ms P-R-T Axes : 056 111 073 degrees QTc Int : 393 ms Sinus tachycardia Non-specific intra-ventricular conduction block Possible Right ventricular hypertrophy Nonspecific T wave abnormality Abnormal ECG When compared with ECG of 25-AUG-2020 16:30, (Unconfirmed) QRS duration has increased ST less depressed in Anterolateral leads Nonspecific T wave abnormality now evident in Inferior leads T wave inversion no longer evident in Anterior leads Confirmed by DR. Mehrdad FIELDS (3) on 08/26/2020 7:20:58 AM Referred By: JAVAD Confirmed By:DR. Mehrdad FIELDS
[2020-08-26] MEDS ORDERED: Potassium Phosphate 30 MMOL in Sodium Chloride 0.9% 500 ML IVPB SCH (07:30)
[2020-08-26] MEDS ORDERED: STERILE WATER IV SCH (07:45)
[2020-08-26] MEDS ORDERED: Lactated Ringer's 1,000 ML IV SCH (08:00)
[2020-08-26] MEDS: Multivitamin W/ Minerals 1 TAB PO SCH (08:16)
[2020-08-26] MEDS: Aspirin 300 MG Suppository PR SCH (08:16)
[2020-08-26] MEDS: Senokot S 8.6-50 MG TAB PO SCH (08:16)
--- NOTE | 2020-08-26 08:25 | RAD ---
EXAM: XR Chest 1 View Portable PROVIDED CLINICAL HISTORY: Respiratory insufficiency COMPARISON: 08/25/2020 FINDINGS: Development of hazy right basilar opacity likely reflecting posteriorly layering pleural fluid. Assoc iated parenchymal opacity is not excluded. Additional significant interval change with respect to the prior examination is not apparent. IMPRESSION: As above.
[2020-08-26] MEDS ORDERED: Sodium Chloride 38.44 MEQ in Sterile Water Injection 990.39 ML IV SCH (08:45)
[2020-08-26 10:59] VITALS: TEMP 97.8
--- NOTE | 2020-08-26 11:45 | EKG ---
Test Reason : Blood Pressure : / mmHG Vent. Rate : 110 BPM Atrial Rate : 110 BPM P-R Int : 146 ms QRS Dur : 104 ms QT Int : 386 ms P-R-T Axes : 054 094 055 degrees QTc Int : 522 ms Sinus tachycardia Inferior infarct , age undetermined cannot be excluded Prolonged QT Abnormal ECG Confirmed by KAY CLEMENTE ([id number]) on 08/26/2020 11:44:46 AM Referred By: CATHERINE BROWN Confirmed By:KAY CLEMENTE
[2020-08-26 12:37] LABS: Hemoglobin 9.6 g/dL (14.0-18.0); Mean Corpuscular HGB CONC 34.7 g/dL (32.0-36.0); Mean Corpuscular Hemoglobin 32.9 pg (27.0-31.0); Mean Corpuscular Volume 94.6 fL (78.0-98.0); Mean Platelet Volume 8.8 fL (7.4-10.4); Platelet Count 11 thou/uL (130-400); RBC Distribution Width 11.9 % (11.5-14.5); Red Blood Cell (RBC) Count 2.91 mill/uL (4.70-6.10); White Blood Cell (WBC) Count 3.1 thou/uL (4.8-10.8)
[2020-08-26 13:06] LABS: Anion Gap 17 mmol/L (10-20); BUN (Urea Nitrogen) 38 mg/dL (8.9-20.6); Band 6 % (5-11); Bite Cells SLIGHT = 2-5 cells (100X) (0-1/hpf); Calc. Creatinine Clearance 45 mL/min (70-130); Carbon Dioxide 13 mmol/L (22-29); Chloride 134 mmol/L (98-107); Eosinophils 1 % (0-10); Glucose 546 mg/dL (70-105); Lymphocytes 6 % (21-51); MDiff Complete? YES; Magnesium 2.5 mg/dL (1.6-2.6); Monocytes 3 % (0-10); Neutrophil 84 % (42-75); Phosphorus 2.4 mg/dL (2.3-4.7); Platelet Morphology Comment Appears Decreased; Polychromasia SLIGHT = 2-3 cells (100X) (0-2/hpf); Potassium 1.6 mmol/L (3.5-5.1); Sodium 162 mmol/L (136-145)
[2020-08-26 13:07] LABS: CKMB 120.4 ng/mL (0-6.6)
[2020-08-26] MEDS: Potassium Chloride 40 MEQ in Premix Bag 1 BAG IVPB SCH ×3 (13:28→15:30)
--- NOTE | 2020-08-26 13:40 | PDOC.EEG ---
Neurology EEG Report - Report Report: This EEG was performed using 24 channel Livestation video digital EEG machine with 24 disc electrodes. This was a routine EEG recording. Background: The posterior background rhythm was not observed. Hyperventilation: Not performed. Photic stimulation: No response seen with photic stimulation. Sleep: No stage change was observed. EEG diagnosis: Generalized voltage attenuation intermixed with extremely low amplitude delta activity seen during the recording. No EEG change with stimulus Absence of posterior background rhythm. Clinical interpretation: This EEG is consistent with severe generalized nonspecific cerebral dysfunction.
[2020-08-26 13:42] LABS: Troponin I 75.612 ng/mL (< 0.028)
[2020-08-26] MEDS ORDERED: [UNRECOGNIZED DRUG - OTHER] IV SCH (13:45)
[2020-08-26] MEDS ORDERED: POTASSIUM CHLORIDE IV SCH (13:45)
[2020-08-26] MEDS ORDERED: SODIUM CHLORIDE IV SCH (13:45)
[2020-08-26 14:15] VITALS: BP 101/60
--- NOTE | 2020-08-26 16:11 | NM ---
Radionucleotide cerebral flow study. Brain scan. FINDINGS: Suspected brain . FINDINGS: Flow images and blood pool images show normal uptake within the scalp and nasopharyngeal mu cosa. There is markedly diminished uptake over the expected location of the cerebrum. IMPRESSION : Loss of cerebral blood flow.
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
[2020-08-26 16:46] LABS: #Lymphocytes 0.3 thou/uL (1.20-3.40); #Monocytes 0.1 thou/uL (0.11-0.59); #Neutrophils 3.9 thou/uL (1.40-6.50); %Lymphocytes 7.6 % (21.0-51.0); %Monocytes 2.1 % (0.0-10.0); %Neutrophils 90.3 % (42.0-75.0); Hemoglobin 9.7 g/dL (14.0-18.0); Mean Corpuscular HGB CONC 34.2 g/dL (32.0-36.0); Mean Corpuscular Hemoglobin 32.4 pg (27.0-31.0); Mean Corpuscular Volume 94.7 fL (78.0-98.0); Mean Platelet Volume 9.5 fL (7.4-10.4); Platelet Count 13 thou/uL (130-400); RBC Distribution Width 11.9 % (11.5-14.5); Red Blood Cell (RBC) Count 2.99 mill/uL (4.70-6.10); White Blood Cell (WBC) Count 4.3 thou/uL (4.8-10.8)
[2020-08-26 17:12] LABS: Anion Gap 11 mmol/L (10-20); BUN (Urea Nitrogen) 37 mg/dL (8.9-20.6); Calc. Creatinine Clearance 44 mL/min (70-130); Calcium 7.9 mg/dL (7.8-10.44); Carbon Dioxide 19 mmol/L (22-29); Chloride 137 mmol/L (98-107); Glucose 477 mg/dL (70-105); Magnesium 2.4 mg/dL (1.6-2.6); Phosphorus 2.3 mg/dL (2.3-4.7); Potassium 2.8 mmol/L (3.5-5.1); Sodium 164 mmol/L (136-145)
[2020-08-26] MEDS ORDERED: Famotidine 20 MG TAB PO SCH (21:00)
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
[2020-09-02 12:44] LABS: Actual Bicarbonate (HCO3a) 17.6 mEq/L (22-28); Base Excess (BEa) -10.4 mEq/L (-2.0 to +3.0); CO2 Tension 47.4 mmHg (35.0-45.0); Calcium, Ionized (arterial) 1.65 mmol/L (1.12-1.30); Carboxyhemoglobin (COHb) 0.3 gm% (0.0-3.0); Hemoglobin (Hb) 11.3 g/dL (14.0-18.0); O2 Tension (PaO2), arterial 113.6 mmHg (80.0-100.0); Potassium - ABG Lab 2.17 mmol/L (3.70-5.30)
[2020-09-02 12:49] LABS: pH, Arterial 7.19 (7.35-7.45)
[2020-09-02 12:50] LABS: Puncture Site Arterial Line
--- NOTE | 2020-09-02 15:50 | CCLSPC ---
INDICATION: Intracranial thrombus. PROCEDURE: Diagnostic cerebral angiogram with mechanical thrombectomy. ANESTHESIA: General. TECHNIQUE: The patient was brought into the operating room and placed under general anesthesia. He was placed on the table in the supine position. He was placed under general anesthesia, and both groins were prepped and draped in the usual sterile fashion. Following an appropriate pause, a 5-[place] micropuncture set was used to gain access to the right common femoral artery. Using a Seldinger technique, the needle was removed, and an 8-[place] sheath was placed. An 8-[place] concentric guide catheter passed over a long diagnostic catheter, which was passed over a [employer] guidewire, was advanced into the left common carotid artery, where an AP and lateral angiogram was performed. 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 A microcatheter was placed into the M2 branch of the middle cerebral artery where an angiogram was performed confirming patency of the M2 and distal branches. The treatment device was deployed a total of three times. The original starting TICI score was 0; then TICI score was 3. After reperfusion, control angiogram was performed, and all catheters were removed. Hemostasis was maintained with manual compression. The procedure came to an end without any known complication. IMPRESSION: The patient underwent successful angiography as well as successful mechanical thrombectomy with a Trevo device. Job ID: [id number]
== END 2020-08-26 16:21 | disposition expired | DRG 25 ==
LOC: ERS 21:04 → SURG A 21:52 → OBSVTOIN 08-23 11:51 → CCU 08-23 15:10
PROVIDERS: ADMIT Specialist; ATTEND Specialist
PROC: 0QSH04Z Reposition Left Tibia with Internal Fixation Device, Open Approach (ICD-10-PCS; principal; 2020-08-23)
PROC: B31R1ZZ Fluoroscopy of Intracranial Arteries using Low Osmolar Contrast (ICD-10-PCS; 2020-08-23)
PROC: 03CG3ZZ Extirpation of Matter from Intracranial Artery, Percutaneous Approach (ICD-10-PCS; 2020-08-23)
PROC: B3171ZZ Fluoroscopy of Left Internal Carotid Artery using Low Osmolar Contrast (ICD-10-PCS; 2020-08-23)
PROC: 5A1945Z Respiratory Ventilation, 24-96 Consecutive Hours (ICD-10-PCS; 2020-08-23)
PROC: 0BH18EZ Insertion of Endotracheal Airway into Trachea, Via Natural or Artificial Opening Endoscopic (ICD-10-PCS; 2020-08-23)
PROC: 03HY32Z Insertion of Monitoring Device into Upper Artery, Percutaneous Approach (ICD-10-PCS; 2020-08-23)
PROC: 3E033XZ Introduction of Vasopressor into Peripheral Vein, Percutaneous Approach (ICD-10-PCS; 2020-08-25)
PROC: 5A12012 Performance of Cardiac Output, Single, Manual (ICD-10-PCS; 2020-08-25)
PROC: 5A2204Z Restoration of Cardiac Rhythm, Single (ICD-10-PCS; 2020-08-25)
PROC: 02HV33Z Insertion of Infusion Device into Superior Vena Cava, Percutaneous Approach (ICD-10-PCS; 2020-08-26)
DX: I97.821 Postprocedural cerebrovascular infarction following other surgery (principal); I63.512 Cerebral infarction due to unspecified occlusion or stenosis of left middle cerebral artery; I63.232 Cerebral infarction due to unspecified occlusion or stenosis of left carotid arteries; I63.522 Cerebral infarction due to unspecified occlusion or stenosis of left anterior cerebral artery; G93.5 Compression of brain; J81.0 Acute pulmonary edema; J95.821 Acute postprocedural respiratory failure; G93.6 Cerebral edema; I21.9 Acute myocardial infarction, unspecified; R40.20 Unspecified coma; S82.142A Displaced bicondylar fracture of left tibia, initial encounter for closed fracture; G81.91 Hemiplegia, unspecified affecting right dominant side; R04.2 Hemoptysis; I47.2 Ventricular tachycardia; D62 Acute posthemorrhagic anemia; N17.9 Acute kidney failure, unspecified; E87.2 Acidosis; Z20.822 Contact with and (suspected) exposure to COVID-19; E83.42 Hypomagnesemia; Y84.8 Other medical procedures as the cause of abnormal reaction of the patient, or of later complication, without mention of misadventure at the time of the procedure; R73.9 Hyperglycemia, unspecified; I46.2 Cardiac arrest due to underlying cardiac condition; E83.39 Other disorders of phosphorus metabolism; D69.6 Thrombocytopenia, unspecified; R29.733 NIHSS score 33; I10 Essential (primary) hypertension; F17.220 Nicotine dependence, chewing tobacco, uncomplicated; W20.8XXA Other cause of strike by thrown, projected or falling object, initial encounter; Z78.1 Physical restraint status; Z90.49 Acquired absence of other specified parts of digestive tract; Z98.52 Vasectomy status; Y92.008 Other place in unspecified non-institutional (private) residence as the place of occurrence of the external cause; Y93.89 Activity, other specified; Z83.3 Family history of diabetes mellitus; Z82.49 Family history of ischemic heart disease and other diseases of the circulatory system; E87.6 Hypokalemia; Y83.8 Other surgical procedures as the cause of abnormal reaction of the patient, or of later complication, without mention of misadventure at the time of the procedure
CPT/HCPCS: 36217; 36218; 36222; 36223; 36415; 36416; 37185; 70450; 70496; 70498; 70551; 71045; 76000; 78610; 80048; 80061; 82150; 82248; 82550; 82553; 82805; 83036; 83605; 83690; 83735; 83880; 84100; 84484; 85025; 85384; 85610; 85730; 87040; 87086; 93005; 93010; 93306; 94002; 94003; 96374; 96375; 96376; A4217; A9521; C1713; C1887; G0378; G0390; J0171; J0360; J0690; J1644; J1815; J1940; J2001; J2150; J2250; J2270; J2370; J2405; J2704; J2930; J3010; J3475; J3480; J3490; J7050; J7070; J7799; P9045; Q9967; S0020; U0002

== ENCOUNTER 2020-08-26 16:19 | Day surgery (SDC) | payer OTHER ==
[2020-08-26] MEDS ORDERED: Refresh Lacri-lube Opth Oint 7 GM TUBE EA EYE SCH (18:00)
[2020-08-26] MEDS ORDERED: Potassium Bicarbonate/Cit Ac 20 MEQ TAB PER TUBE SCH (18:00)
[2020-08-26] MEDS ORDERED: Hydrocortisone Sod Succ/PF 500 mg/4 ml Vial SLOW IVP SCH (18:00)
[2020-08-26] MEDS ORDERED: Phenylephrine 40 MG in Sodium Chloride 0.9% 250 ML 250 ML IVPB SCH (18:00)
[2020-08-26] MEDS ORDERED: Norepinephrine 8 MG/0.9% NS 250 ML IVPB SCH (18:00)
[2020-08-26] MEDS ORDERED: Insulin Regular 100 units/100 ml in NS IVPB SCH (18:15)
[2020-08-26 18:17] LABS: Base Excess (BEa) -7.4 mEq/L (-2.0 to +3.0); CO2 Tension 26.3 mmHg (35.0-45.0); Carboxyhemoglobin (COHb) 0.3 gm% (0.0-3.0); Hemoglobin (Hb) 10.3 g/dL (14.0-18.0); O2 Tension (PaO2), arterial 374.9 mmHg (80.0-100.0); Potassium - ABG Lab 2.85 mmol/L (3.70-5.30)
[2020-08-26 18:20] LABS: ALV-art Gradient 305.225 mmHg (0-20); Puncture Site Arterial Line
[2020-08-26] MEDS: Piperacillin/Tazobactam 3.375 GM in Sodium Chloride 0.9% 100 ML IVPB SCH (18:45)
--- NOTE | 2020-08-26 18:47 | RAD ---
AP CHEST: 08/26/20 INDICATIONS: Intubation. Follow-up. COMPARISON: 08/26/20 at 4:20 a.m. ET tube, NG tube and central line is unchanged. Right basilar opacity described on earlier exam is less pronounced although there continues to be sug gestion of right basilar atelectasis or infiltrate. Evidence of small bilateral effusions. Upper lung tian remain clear and u unchanged. IMPRESSION: Improved right basilar aeration when compared to earlier film. No acute interval change. POS: AGW
[2020-08-26 19:13] LABS: #Lymphocytes 0.3 thou/uL (1.20-3.40); #Monocytes 0.1 thou/uL (0.11-0.59); #Neutrophils 5.2 thou/uL (1.40-6.50); %Basophils 0.5 % (0.0-1.0); %Eosinophils 0.1 % (0.0-10.0); %Monocytes 2.2 % (0.0-10.0); %Neutrophils 91.2 % (42.0-75.0); Hemoglobin 9.9 g/dL (14.0-18.0); Mean Corpuscular Hemoglobin 32.1 pg (27.0-31.0); Mean Corpuscular Volume 94.3 fL (78.0-98.0); Mean Platelet Volume 10.1 fL (7.4-10.4); Platelet Count 14 thou/uL (130-400); Red Blood Cell (RBC) Count 3.09 mill/uL (4.70-6.10); White Blood Cell (WBC) Count 5.7 thou/uL (4.8-10.8)
[2020-08-26] MEDS: Albuterol Sulfate 2.5 mg/3 ml Neb NEB SCH ×2 (19:14→21:36)
[2020-08-26 19:17] LABS: INR-International Normal Ratio 1.9; PTT 33.8 sec (22.9-36.1); Prothrombin Time 21.9 sec (12.0-14.7)
[2020-08-26 19:24] LABS: Hemoglobin A1c 6.3 % (4.0-6.0)
[2020-08-26 19:29] LABS: Lactic Acid 1.9 mmol/L (0.5-2.2)
[2020-08-26 19:40] LABS: ALT (SGPT) 106 U/L (8-55); AST (SGOT) 303 U/L (5-34); Albumin 2.9 g/dL (3.5-5.0); Alkaline Phosphatase 49 U/L (40-110); Anion Gap 15 mmol/L (10-20); BUN (Urea Nitrogen) 39 mg/dL (8.9-20.6); Bilirubin, Direct 1.7 mg/dL (0.1-0.3); Bilirubin, Total 2.6 mg/dL (0.2-1.2); Calc. Creatinine Clearance 0 mL/min (70-130); Calcium 7.8 mg/dL (7.8-10.44); Carbon Dioxide 17 mmol/L (22-29); Chloride 136 mmol/L (98-107); Glucose 444 mg/dL (70-105); Magnesium 2.4 mg/dL (1.6-2.6); Phosphorus 2.5 mg/dL (2.3-4.7); Potassium 3.2 mmol/L (3.5-5.1); Protein, Total 4.9 g/dL (6.0-8.3); Sodium 165 mmol/L (136-145)
[2020-08-26 19:46] LABS: CKMB 129.8 ng/mL (0-6.6)
[2020-08-26 20:07] LABS: CK (CPK) 4693 U/L (30-200); Lipase 65 U/L (8-78)
[2020-08-26] MEDS ORDERED: Albumin 25% 25 GM/100 ML BOT IVPB SCH (20:15)
[2020-08-26] MEDS: Phytonadione 10 MG/ML AMP SLOW IVP SCH (20:50)
[2020-08-26] MEDS: Sodium Chloride 38.44 MEQ in Sterile Water Injection 990.39 ML IV SCH (21:27)
[2020-08-26 21:56] VITALS: TEMP 97.7
[2020-08-26 22:18] LABS: Bilirubin Negative (Negative); Blood, Urine 3+ (Negative); Clarity Turbid (Clear); Glucose, Urine (Dipstick) Greater than 1000 mg/dL (Negative); Ketone, Urine Negative (Negative); Leukocyte Negative Leu/uL (Negative); Nitrite Negative (Negative); Protein, Urine (Dipstick) 20 mg/dL (Neg-Trace); RBC/HPF 0-3 HPF (0-3); Specific Gravity, Urine 1.016 (1.002-1.036); Squamous Epithelial None Seen HPF (0-3); Urobilinogen Normal mg/dL (Less than 2); WBC/HPF 0-3 HPF (0-3); pH, Urine 5.5 (5.0-9.0)
[2020-08-26 22:42] LABS: Bacteria/HPF Rare-Few HPF (None Seen)
[2020-08-26 22:43] LABS: Urine Culture Reflex No No
[2020-08-27] MEDS: Phytonadione 10 MG/ML AMP SLOW IVP SCH (00:19)
[2020-08-27] MEDS: Piperacillin/Tazobactam 3.375 GM in Sodium Chloride 0.9% 100 ML IVPB SCH ×4 (00:19→17:43)
[2020-08-27 00:33] LABS: INR-International Normal Ratio 1.8; PTT 34.3 sec (22.9-36.1); Prothrombin Time 20.8 sec (12.0-14.7)
[2020-08-27 00:34] LABS: Mean Corpuscular HGB CONC 34.9 g/dL (32.0-36.0); Mean Corpuscular Hemoglobin 32.9 pg (27.0-31.0); Mean Corpuscular Volume 94.3 fL (78.0-98.0); Mean Platelet Volume 8.7 fL (7.4-10.4); Platelet Count 39 thou/uL (130-400); RBC Distribution Width 12.1 % (11.5-14.5); Red Blood Cell (RBC) Count 2.72 mill/uL (4.70-6.10); White Blood Cell (WBC) Count 6.9 thou/uL (4.8-10.8)
[2020-08-27 00:41] LABS: Band 16 % (5-11); Eosinophils 1 % (0-10); Lymphocytes 3 % (21-51); MDiff Complete? YES; Monocytes 1 % (0-10); Neutrophil 79 % (42-75); Nucleated RBC 1 % (0); Platelet Morphology Comment Appears Decreased
[2020-08-27 00:47] LABS: Lactic Acid 1.9 mmol/L (0.5-2.2)
[2020-08-27 01:04] LABS: Actual Bicarbonate (HCO3a) 18.5 mEq/L (22-28); Base Excess (BEa) -6.3 mEq/L (-2.0 to +3.0); CO2 Tension 33.9 mmHg (35.0-45.0); Calcium, Ionized (arterial) 1.16 mmol/L (1.12-1.30); Carboxyhemoglobin (COHb) 0.3 gm% (0.0-3.0); Hemoglobin (Hb) 9.1 g/dL (14.0-18.0); O2 Tension (PaO2), arterial 436.3 mmHg (80.0-100.0); Potassium - ABG Lab 4.89 mmol/L (3.70-5.30); pH, Arterial 7.36 (7.35-7.45)
[2020-08-27 01:06] LABS: CK (CPK) 4199 U/L (30-200); CKMB 82.4 ng/mL (0-6.6); Critical Call CKMB RESULT DECREASING; Critical Call Chem Troponin I RESULT DECREASING
[2020-08-27 01:07] LABS: ALT (SGPT) 124 U/L (8-55); AST (SGOT) 283 U/L (5-34); Albumin 3.6 g/dL (3.5-5.0); Alkaline Phosphatase 45 U/L (40-110); Anion Gap 15 mmol/L (10-20); BUN (Urea Nitrogen) 39 mg/dL (8.9-20.6); Bilirubin, Direct 2.1 mg/dL (0.1-0.3); Bilirubin, Total 3.3 mg/dL (0.2-1.2); Calc. Creatinine Clearance 0 mL/min (70-130); Calcium 7.9 mg/dL (7.8-10.44); Carbon Dioxide 18 mmol/L (22-29); Chloride 136 mmol/L (98-107); Glucose 413 mg/dL (70-105); Lipase 71 U/L (8-78); Magnesium 2.6 mg/dL (1.6-2.6); Protein, Total 5.6 g/dL (6.0-8.3); Sodium 164 mmol/L (136-145)
[2020-08-27 01:08] LABS: ALV-art Gradient 234.325 mmHg (0-20)
[2020-08-27] MEDS: Albuterol Sulfate 2.5 mg/3 ml Neb NEB SCH ×5 (01:18→18:00)
[2020-08-27] MEDS: Levothyroxine Sodium 400 MCG in Sodium Chloride 0.9% 100 ML IVPB SCH ×3 (01:36→14:13)
[2020-08-27] MEDS: Hydrocortisone Sod Succ/PF 100 mg/2 ml Vial IVP SCH ×3 (01:38→17:43)
[2020-08-27] MEDS: Sodium Chloride 38.44 MEQ in Sterile Water Injection 990.39 ML IV SCH ×3 (06:06→20:32)
[2020-08-27 06:31] LABS: INR-International Normal Ratio 1.7; Prothrombin Time 19.9 sec (12.0-14.7)
[2020-08-27 06:44] LABS: Lactic Acid 3.2 mmol/L (0.5-2.2)
[2020-08-27 06:47] LABS: Hemoglobin 8.6 g/dL (14.0-18.0); Mean Corpuscular Hemoglobin 32.3 pg (27.0-31.0); Mean Corpuscular Volume 94.8 fL (78.0-98.0); Mean Platelet Volume 8.3 fL (7.4-10.4); Platelet Count 31 thou/uL (130-400); RBC Distribution Width 12.2 % (11.5-14.5); Red Blood Cell (RBC) Count 2.67 mill/uL (4.70-6.10); White Blood Cell (WBC) Count 6.7 thou/uL (4.8-10.8)
[2020-08-27 06:52] LABS: Band 20 % (5-11); Lymphocytes 5 % (21-51); MDiff Complete? YES; Metamyelocyte 2 % (0-0); Monocytes 2 % (0-10); Neutrophil 71 % (42-75); Nucleated RBC 1 % (0); Platelet Morphology Comment Appears Decreased
[2020-08-27 06:53] LABS: ALT (SGPT) 153 U/L (8-55); AST (SGOT) 293 U/L (5-34); Albumin 3.4 g/dL (3.5-5.0); Alkaline Phosphatase 41 U/L (40-110); Anion Gap 14 mmol/L (10-20); BUN (Urea Nitrogen) 35 mg/dL (8.9-20.6); Bilirubin, Direct 1.7 mg/dL (0.1-0.3); Bilirubin, Total 2.6 mg/dL (0.2-1.2); Calc. Creatinine Clearance 0 mL/min (70-130); Calcium 7.8 mg/dL (7.8-10.44); Carbon Dioxide 18 mmol/L (22-29); Chloride 140 mmol/L (98-107); Globulin 1.7 g/dL (2.4-3.5); Glucose 271 mg/dL (70-105); Lipase 81 U/L (8-78); Magnesium 2.5 mg/dL (1.6-2.6); Phosphorus 2.3 mg/dL (2.3-4.7); Potassium 4.3 mmol/L (3.5-5.1); Protein, Total 5.1 g/dL (6.0-8.3); Sodium 168 mmol/L (136-145)
[2020-08-27 06:57] LABS: CKMB 70.3 ng/mL (0-6.6); Critical Call CKMB RESULT DECREASING
[2020-08-27 07:02] LABS: Actual Bicarbonate (HCO3a) 18.1 mEq/L (22-28); Base Excess (BEa) -6.9 mEq/L (-2.0 to +3.0); CO2 Tension 33.9 mmHg (35.0-45.0); Calcium, Ionized (arterial) 1.18 mmol/L (1.12-1.30); Carboxyhemoglobin (COHb) 0.4 gm% (0.0-3.0); Hemoglobin (Hb) 8.3 g/dL (14.0-18.0); O2 Tension (PaO2), arterial 461.4 mmHg (80.0-100.0); pH, Arterial 7.35 (7.35-7.45)
[2020-08-27 07:03] LABS: Puncture Site Arterial Line
[2020-08-27 07:03] LABS: CK (CPK) 4952 U/L (30-200)
[2020-08-27 07:04] LABS: ALV-art Gradient 209.225 mmHg (0-20)
--- NOTE | 2020-08-27 07:08 | RAD ---
PORTABLE CHEST: Date: 08/26/2020 INDICATION: Intubation. CCU follow-up. COMPARISON: Film at 6:08 p.m. FINDINGS: ET tube, NG tube, and central line unchanged. Infiltrate or atelectasis in the medial right lung base is unchanged. Vascular markings upper normal and stable. No acute interval change noted. IMPRESSION: Stable chest findings. POS: AGW
[2020-08-27] MEDS ORDERED: Iopamidol 370 76% 100 ML VIAL ONE (08:00)
[2020-08-27 08:41] LABS: Bilirubin Negative (Negative); Blood, Urine Large (Negative); Glucose, Urine (Dipstick) 100 mg/dL (Negative); Ketone, Urine Negative (Negative); Leukocyte Negative (Negative); Nitrite Negative (Negative); Protein, Urine (Dipstick) Trace mg/dL (Neg-Trace); Specific Gravity, Urine 1.015 (1.005-1.030); Urobilinogen 0.2 mg/dL (Less than 2); pH, Urine 5.5 (5.0-9.0)
[2020-08-27 08:46] LABS: Clarity Cloudy (Clear)
[2020-08-27 08:47] LABS: Urine Culture Reflex No No
[2020-08-27 08:54] LABS: Bacteria/HPF Rare-Few HPF (None Seen); RBC/HPF 0-3 HPF (0-3); WBC/HPF 0-3 HPF (0-3)
--- NOTE | 2020-08-27 09:16 | RAD ---
CHEST 1 VIEW: Date: 08/27/2020 INDICATION: History of chest pain. COMPARISON: Prior exam dated 08/26/2020. IMPRESSION: Right basilar opacity persists. ET tube, gastric catheter, left subclavian central venous catheter, a nd pacer pad are stable. No pneumothorax is evident. POS: BH
[2020-08-27] MEDS ORDERED: Albumin 5% 500 ML ONE (09:35)
[2020-08-27] MEDS ORDERED: Calcium Gluconate 4.6 MEQ in Sodium Chloride 0.9% 100 ML IVPB SCH ×2 (11:00→14:15)
--- NOTE | 2020-08-27 12:26 | RAD ---
PORTABLE CHEST 1 VIEW: Date: 08/27/2020 HISTORY: Chest pain. COMPARISON: 08/27/2020, 0604 hours. FINDINGS: Endotracheal tube and left central line and gastric tubes are in place. The tip of the gastric tube i s within the stomach, the side hole is at approximately the level of the diaphragm. There are some pa tchy interstitial and alveolar parenchymal changes in the right perihilar region and right lower lobe , raising the possibility of pneumonia or possibly aspiration. Overall appearance is not significantl y changed. IMPRESSION: 1. Life support tubes in place as above. 2. Patchy parenchymal changes, particularly in the right perihilar and infrahilar region, raising co ncern for developing pneumonia or possible aspiration. Continue short-term fur clearing or stability. POS: OFF
[2020-08-27 12:32] LABS: #Lymphocytes 0.1 thou/uL (1.20-3.40); #Monocytes 0.1 thou/uL (0.11-0.59); #Neutrophils 5.1 thou/uL (1.40-6.50); %Eosinophils 0.2 % (0.0-10.0); %Lymphocytes 2.5 % (21.0-51.0); %Monocytes 1.7 % (0.0-10.0); %Neutrophils 95.7 % (42.0-75.0)
[2020-08-27 12:42] LABS: INR-International Normal Ratio 1.6; PTT 31.1 sec (22.9-36.1); Prothrombin Time 19.4 sec (12.0-14.7)
[2020-08-27 12:46] LABS: Lactic Acid 2.4 mmol/L (0.5-2.2)
[2020-08-27 12:49] LABS: Actual Bicarbonate (HCO3a) 20.6 mEq/L (22-28); Base Excess (BEa) -4.3 mEq/L (-2.0 to +3.0); CO2 Tension 36.7 mmHg (35.0-45.0); Calcium, Ionized (arterial) 1.17 mmol/L (1.12-1.30); Carboxyhemoglobin (COHb) 0.8 gm% (0.0-3.0); Hemoglobin (Hb) 7.7 g/dL (14.0-18.0); O2 Tension (PaO2), arterial 491.7 mmHg (80.0-100.0); Potassium - ABG Lab 4.31 mmol/L (3.70-5.30); pH, Arterial 7.37 (7.35-7.45)
[2020-08-27 12:50] LABS: ALV-art Gradient 175.425 mmHg (0-20); Puncture Site Arterial Line
[2020-08-27 12:55] LABS: Critical Call CKMB RESULT DECREASING; Critical Call Chem Troponin I RESULT DECREASING
[2020-08-27 12:56] LABS: Band 23 % (5-11); Bite Cells SLIGHT = 2-5 cells (100X) (0-1/hpf); Eosinophils 1 % (0-10); Hemoglobin 7.9 g/dL (14.0-18.0); Lymphocytes 1 % (21-51); MDiff Complete? YES; Mean Corpuscular Hemoglobin 33.8 pg (27.0-31.0); Mean Corpuscular Volume 96.6 fL (78.0-98.0); Mean Platelet Volume 8.3 fL (7.4-10.4); Metamyelocyte 1 % (0-0); Monocytes 1 % (0-10); Neutrophil 73 % (42-75); Platelet Count 27 thou/uL (130-400); Platelet Morphology Comment Appears Decreased; Polychromasia SLIGHT = 2-3 cells (100X) (0-2/hpf); RBC Distribution Width 12.1 % (11.5-14.5); Red Blood Cell (RBC) Count 2.34 mill/uL (4.70-6.10); White Blood Cell (WBC) Count 5.3 thou/uL (4.8-10.8)
[2020-08-27 13:02] LABS: CK (CPK) 6097 U/L (30-200)
[2020-08-27 13:16] LABS: ALT (SGPT) 185 U/L (8-55); AST (SGOT) 319 U/L (5-34); Albumin 3.5 g/dL (3.5-5.0); Alkaline Phosphatase 40 U/L (40-110); Anion Gap 15 mmol/L (10-20); BUN (Urea Nitrogen) 32 mg/dL (8.9-20.6); Bilirubin, Total 2.9 mg/dL (0.2-1.2); Calc. Creatinine Clearance 0 mL/min (70-130); Carbon Dioxide 20 mmol/L (22-29); Chloride 139 mmol/L (98-107); Globulin 1.8 g/dL (2.4-3.5); Glucose 177 mg/dL (70-105); Lipase 96 U/L (8-78); Magnesium 2.5 mg/dL (1.6-2.6); Phosphorus 2.6 mg/dL (2.3-4.7); Potassium 4.3 mmol/L (3.5-5.1); Protein, Total 5.3 g/dL (6.0-8.3); Sodium 170 mmol/L (136-145)
[2020-08-27] MEDS: Vasopressin 20 UNIT, Admixture Fee 1 EACH in Sodium Chloride 0.9% 50 ML IV SCH ×2 (14:23→20:18)
[2020-08-27 16:03] VITALS: BP 98/61
[2020-08-27 16:17] LABS: Mean Corpuscular HGB CONC 34.4 g/dL (32.0-36.0); Mean Corpuscular Hemoglobin 32.8 pg (27.0-31.0); Mean Corpuscular Volume 95.4 fL (78.0-98.0); Platelet Count 40 thou/uL (130-400); RBC Distribution Width 12.4 % (11.5-14.5); Red Blood Cell (RBC) Count 2.44 mill/uL (4.70-6.10); White Blood Cell (WBC) Count 7.2 thou/uL (4.8-10.8)
[2020-08-27 16:48] LABS: Band 20 % (5-11); Lymphocytes 2 % (21-51); MDiff Complete? YES; Neutrophil 78 % (42-75); Platelet Morphology Comment Appears Decreased; Polychromasia SLIGHT = 2-3 cells (100X) (0-2/hpf)
[2020-08-27 19:27] LABS: Hemoglobin 8.4 g/dL (14.0-18.0); Mean Corpuscular HGB CONC 33.6 g/dL (32.0-36.0); Mean Corpuscular Hemoglobin 32.2 pg (27.0-31.0); Platelet Count 71 thou/uL (130-400); RBC Distribution Width 12.5 % (11.5-14.5); White Blood Cell (WBC) Count 11.6 thou/uL (4.8-10.8)
[2020-08-27 19:34] LABS: INR-International Normal Ratio 1.4; PTT 29.7 sec (22.9-36.1)
[2020-08-27 19:44] LABS: Lactic Acid 2.8 mmol/L (0.5-2.2)
[2020-08-27 19:52] LABS: Band 15 % (5-11); Basophilic Stippling SLIGHT = 1-2 cells (100X) (None Seen); Lymphocytes 1 % (21-51); MDiff Complete? YES; Metamyelocyte 1 % (0-0); Monocytes 1 % (0-10); Neutrophil 82 % (42-75); Nucleated RBC 1 % (0); Platelet Morphology Comment Appears Decreased; Polychromasia SLIGHT = 2-3 cells (100X) (0-2/hpf)
[2020-08-27 19:55] LABS: CKMB 35.4 ng/mL (0-6.6); Critical Call CKMB RESULT DECREASING
[2020-08-27 19:57] LABS: ALT (SGPT) 422 U/L (8-55); AST (SGOT) 719 U/L (5-34); Albumin 3.8 g/dL (3.5-5.0); Alkaline Phosphatase 59 U/L (40-110); Anion Gap 17 mmol/L (10-20); BUN (Urea Nitrogen) 33 mg/dL (8.9-20.6); Bilirubin, Direct 4.2 mg/dL (0.1-0.3); Bilirubin, Total 6.3 mg/dL (0.2-1.2); Calc. Creatinine Clearance 0 mL/min (70-130); Calcium 8.2 mg/dL (7.8-10.44); Carbon Dioxide 21 mmol/L (22-29); Chloride 132 mmol/L (98-107); Globulin 2.1 g/dL (2.4-3.5); Glucose 194 mg/dL (70-105); Lipase 134 U/L (8-78); Magnesium 2.3 mg/dL (1.6-2.6); Phosphorus 4.4 mg/dL (2.3-4.7); Potassium 5.4 mmol/L (3.5-5.1); Protein, Total 5.9 g/dL (6.0-8.3); Sodium 165 mmol/L (136-145)
--- NOTE | 2020-08-27 20:12 | RAD ---
RADIOGRAPH CHEST 1 VIEW: Date: 08/27/20 Time: 7:01 p.m. HISTORY: 45-year-old male with chest pain. COMPARISON: 08/27/20, 11:48 a.m. FINDINGS: No change in positions of endotracheal tube, esophagogastric tube, and left subclavian central venous catheter. No pneumothorax or cardiomegaly. Enlargement of right hilar shadow. Minimal faint pulmonary densities at right base. No consolidation. No interval change. IMPRESSION: No interval change. JN [] POS: JIN
[2020-08-27 20:14] LABS: CK (CPK) 8864 U/L (30-200)
[2020-08-27 20:50] LABS: Base Excess (BEa) -6.8 mEq/L (-2.0 to +3.0); CO2 Tension 46.6 mmHg (35.0-45.0); Calcium, Ionized (arterial) 1.14 mmol/L (1.12-1.30); Carboxyhemoglobin (COHb) 0.7 gm% (0.0-3.0); Hemoglobin (Hb) 8.4 g/dL (14.0-18.0); O2 Tension (PaO2), arterial 372.5 mmHg (80.0-100.0); Potassium - ABG Lab 5.18 mmol/L (3.70-5.30)
[2020-08-27 20:55] LABS: pH, Arterial 7.25 (7.35-7.45)
[2020-08-27 20:56] LABS: Puncture Site Arterial Line
[2020-08-27 22:01] LABS: Bilirubin Negative (Negative); Blood, Urine 3+ (Negative); Clarity Extra Turbid (Clear); Glucose, Urine (Dipstick) 200 mg/dL (Negative); Ketone, Urine Negative (Negative); Leukocyte 25 Leu/uL (Negative); Nitrite Negative (Negative); Protein, Urine (Dipstick) 100 mg/dL (Neg-Trace); RBC/HPF Greater than 50 HPF (0-3); Specific Gravity, Urine 1.041 (1.002-1.036); Squamous Epithelial 0-3 HPF (0-3); Urobilinogen Normal mg/dL (Less than 2); pH, Urine 5.5 (5.0-9.0)
[2020-08-27 22:12] LABS: Bacteria/HPF Rare-Few HPF (None Seen)
[2020-08-27 22:13] LABS: Urine Culture Reflex Yes Yes
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
--- NOTE | 2020-08-28 07:14 | RAD ---
AP CHEST: Date: 08/27/2020 INDICATION: Organ donor. COMPARISON: 08/27/2020. FINDINGS: ET tube, NG tube, and central line unchanged. Cardiomegaly with mild vascular congestion. I cannot ex clude small effusions. I cannot exclude hazy infiltrate or atelectasis in the right lung base. IMPRESSION: No evidence of acute interval change. POS: AGW
--- NOTE | 2020-08-28 07:19 | EKG ---
Test Reason : Blood Pressure : / mmHG Vent. Rate : 092 BPM Atrial Rate : 092 BPM P-R Int : 132 ms QRS Dur : 098 ms QT Int : 322 ms P-R-T Axes : 071 091 264 degrees QTc Int : 398 ms Normal sinus rhythm Rightward axis Nonspecific ST and T wave abnormality Abnormal ECG Confirmed by DR. Mehrdad FIELDS ([id number]) on 08/28/2020 7:19:15 AM Referred By: [facility] Confirmed By:DR. Mehrdad FIELDS
== END 2020-08-28 00:05 | disposition short-term general hospital (02) ==
LOC: SDC 16:19 → CCU 18:46 → SDC 08-28 00:05
PROC: 4A023N8 Measurement of Cardiac Sampling and Pressure, Bilateral, Percutaneous Approach (ICD-10-PCS; principal; 2020-08-28)
PROC: B2111ZZ Fluoroscopy of Multiple Coronary Arteries using Low Osmolar Contrast (ICD-10-PCS; principal; 2020-08-28)
DX: Z52.89 Donor of other specified organs or tissues (principal)
CPT/HCPCS: 36415; 36416; 36430; 71045; 76942; 81001; 82150; 82248; 82550; 82805; 82977; 83036; 83605; 83690; 83735; 84100; 85384; 85610; 85730; 86850; 86900; 86901; 87086; 87205; 93005; 93010; 93306; 93460; 93561; 94003; 94640; 95816; 95819; 95957; A4217; J1644; J1720; J1815; J2001; J2370; J2543; J3430; J3490; J7050; J7611; P9035; P9045; P9047; P9059; Q9967